=== PATIENT | female | born 1975 | race African-American/Black ===

== ENCOUNTER 2016-03-05 10:07 | Inpatient (IN) | payer MEDICARE, MEDICAID ==
--- NOTE | 2016-03-05 10:19 | ER Document Report ---
ED General - General Stated Complaint: ABDOMINAL PAIN Time seen by provider: 10:17 Mode of Arrival: Medic Information source: Patient, Emergency Med Personnel Notes: This is a 40-year-old female with a history of pancreatitis, sarcoidosis who is brought in by EMS with severe upper and right-sided abdominal pain. Patient states that the pain started gradually last night and has slowly and progressively worsened. Patient has a hysterectomy: Denies any vaginal discharge or vaginal bleeding. Patient denies any blood per stool. Patient denies fever. TRAVEL OUTSIDE OF THE [place] IN LAST 30 DAYS: No - HPI Onset: Yesterday Onset/Duration: Gradual Quality of pain: Dull Severity: Severe Pain Level: 5 Associated symptoms: Nausea, Vomiting. denies: Chills, Fever, Shortness of breath Exacerbated by: Denies Relieved by: Denies Similar symptoms previously: Yes Recently seen / treated by doctor: No - Related Data Allergies/Adverse Reactions: No Known Allergies Allergy (Unverified 10/10/15 23:01) Home Medications: Current Home Medications Amitriptyline HCl [Elavil 25 mg Tablet] 25 mg PO QHS PRN 03/05/16 [History] Cyclobenzaprine HCl [Flexeril 10 mg Tablet] 10 mg PO TIDP PRN 03/05/16 [History] Past Medical History - General Information source: Patient - Social History Smoking Status: Never Smoker Cigarette use (# per day): No Chew tobacco use (# tins/day): No Frequency of alcohol use: None Drug Abuse: None Lives with: Family Family History: Reviewed & Not Pertinent Patient has suicidal ideation: No Patient has homicidal ideation: No - Past Medical History Cardiac Medical History: Reports: None Pulmonary Medical History: Reports: Other - Sarcoidosis EENT Medical History: Reports: None Neurological Medical History: Reports: None Endocrine Medical History: Reports: None Renal/ Medical History: Reports: None Malignancy Medical History: Reports: None GI Medical History: Reports: Other - Pancreatitis Musculoskeltal Medical History: Reports None Skin Medical History: Reports None Psychiatric Medical History: Reports: None Traumatic Medical History: Reports: None Infectious Medical History: Reports: None Past Surgical History: Reports: Hx Hysterectomy - Immunizations Immunizations up to date: No Review of Systems - Review of Systems Constitutional: denies: Chills, Fever EENT: No symptoms reported Cardiovascular: No symptoms reported Respiratory: No symptoms reported Gastrointestinal: See HPI Genitourinary: No symptoms reported Female Genitourinary: No symptoms reported Musculoskeletal: No symptoms reported Skin: No symptoms reported Hematologic/Lymphatic: No symptoms reported Neurological/Psychological: No symptoms reported Physical Exam - Vital signs Vitals: Temp Pulse Resp BP Pulse Ox 97.8 F 127 H 28 H 137/83 H 98 03/05/16 10:25 03/05/16 10:25 03/05/16 10:25 03/05/16 10:25 03/05/16 10:25 Notes: Physical exam: GENERAL: 40-year-old female, alert and oriented 3, moderate distress HEAD: Atraumatic, normocephalic. EYES: Pupils equal round and reactive to light, extraocular movements intact, sclera anicteric, conjunctiva are normal. ENT: TMs normal, nares patent, oropharynx clear without exudates. Moist mucous membranes. NECK: Normal range of motion, supple without lymphadenopathy or JVD. LUNGS: Breath sounds clear to auscultation bilaterally and equal. No wheezes rales or rhonchi. HEART: Regular rate and rhythm without murmurs, rubs or gallops. ABDOMEN: Soft, diffusely tender nontender without rebound, normoactive bowel sounds. No masses appreciated. EXTREMITIES: Normal range of motion, no pitting or edema. No clubbing or cyanosis. NEUROLOGICAL: Cranial nerves II through XII grossly intact. Normal speech, normal gait. PSYCH: Normal mood, normal affect. SKIN: Warm, Dry, normal turgor, no rashes or lesions noted. Course - Re-evaluation Re-evalutation: 03/05/16 19:14 Patient treated with IV fluids, IV morphine, IV Dilaudid, IV Reglan, IV Benadryl , IV Zofran. Patient's lipase is markedly elevated consistent with pancreatitis. Ultrasound of the abdomen was then obtained which does not show any gallbladder disease. There is no obvious common bile duct dilatation, no obvious intrahepatic ductal dilatation. - Vital Signs Vital signs: Temp Pulse Resp BP Pulse Ox 97.3 F 91 19 117/78 100 03/05/16 17:35 03/05/16 17:35 03/05/16 17:35 03/05/16 17:35 03/05/16 17:35 - Laboratory Result Diagrams: 03/05/16 10:34 03/05/16 10:34 Laboratory results interpreted by me: 03/05/16 03/05/16 03/05/16 10:34 10:34 10:34 MCHC 31.4 L RDW 14.2 H Glucose 201 H Lactic Acid 2.3 H AST 107 H ALT 77 H Lipase 3690.9 H Urine Blood 03/05/16 12:30 MCHC RDW Glucose Lactic Acid AST ALT Lipase Urine Blood SMALL H - Diagnostic Test Radiology reviewed: Image reviewed, Reports reviewed - Acute pancreatitis on abdominal CT. Critical Care Note - Critical Care Note Total time excluding time spent on procedures (mins): 60 Discharge - Discharge Clinical Impression: acute pancreatitis Condition: Serious Disposition: ADMITTED INPATIENT Admitting Provider: Hospitalist - Dr. Guido Unit Admitted: Telemetry
[2016-03-05] MEDS ORDERED: ONDANSETRON HCL INJ/PF 4 MG/2 ML SDV IV ONE ×2 (10:20→13:12)
[2016-03-05] MEDS: MORPHINE SULFATE 10 MG/ML INJ IV PRN ×2 (10:41→10:54)
[2016-03-05] MEDS: NORMAL SALINE 1000 ML 1,000 ML IV PRN ×2 (10:42→14:39)
[2016-03-05 10:53] LABS: ABSOLUTE BASOPHILS # (AUTO) 0.1 10^3/uL (0.0-0.2); ABSOLUTE EOSINOPHILS # (AUTO) 0.1 10^3/uL (0.0-0.6); ABSOLUTE LYMPHOCYTES (AUTO) 3.7 10^3/uL (0.5-4.7); ABSOLUTE MONOCYTES (AUTO) 0.4 10^3/uL (0.1-1.4); ABSOLUTE NEUT (AUTO) 4.5 10^3/uL (1.7-8.2); BASOPHILS % (AUTO) 0.6 % (0-2); EOSINOPHILS % (AUTO) 0.8 % (0-6); HEMATOCRIT 44.5 % (36.0-47.0); HGB HCT DIFFERENCE -2.5; LYMPHOCYTES % (AUTO) 42.6 % (13-45); MEAN CORPUSCULAR HEMOGLOBIN 28.6 pg (27.0-33.4); MEAN CORPUSCULAR HGB CONC 31.4 g/dL (32.0-36.0); MEAN CORPUSCULAR VOLUME 91 fl (80-97); MONOCYTES % (AUTO) 4.3 % (3-13); RED CELL DISTRIBUTION WIDTH 14.2 % (11.5-14.0); SEGMENTED NEUTROPHILS % (AUTO) 51.7 % (42-78); WHITE BLOOD COUNT 8.8 10^3/uL (4.0-10.5)
[2016-03-05] MEDS ORDERED: HYDROMORPHONE HCL INJ/PF 2 MG/ML AMPULE IV ONE ×3 (11:00→14:31)
[2016-03-05 11:35] LABS: ALANINE AMINOTRANSFERASE 77 U/L (9-52); ALBUMIN 3.9 g/dL (3.5-5.0); ALKALINE PHOSPHATASE 107 U/L (38-126); ANION GAP 13 (5-19); ASPARTATE AMINO TRANSFERASE 107 U/L (14-36); BILIRUBIN,TOTAL 0.5 mg/dL (0.2-1.3); BLOOD UREA NITROGEN 11 mg/dL (7-20); CARBON DIOXIDE 22 mmol/L (22-30); CHLORIDE 104 mmol/L (98-107); CREATININE RESULT 0.72 mg/dL (0.52-1.25); GLUCOSE 201 mg/dL (75-110); POTASSIUM 4.2 mmol/L (3.6-5.0); SODIUM 139.3 mmol/L (137-145); TOTAL PROTEIN 8.1 g/dL (6.3-8.2)
[2016-03-05 11:48] LABS: LIPASE 3690.9 U/L (23-300)
[2016-03-05] MEDS ORDERED: ONDANSETRON HCL INJ/PF 4 MG/2 ML SDV ONE (12:43)
[2016-03-05 13:08] LABS: APPEARANCE,URINE TURBID; BILIRUBIN,URINE NEGATIVE (NEGATIVE); GLUCOSE, URINE NEGATIVE (NEGATIVE); KETONES,URINE NEGATIVE (NEGATIVE); LEUKOCYTE ESTERASE,URINE NEGATIVE (NEGATIVE); NITRITE,URINE NEGATIVE (NEGATIVE); PROTEIN,URINE NEGATIVE (NEGATIVE); URINE SPECIFIC GRAVITY 1.039; UROBILINOGEN,URINE NEGATIVE mg/dL (<2.0)
[2016-03-05] MEDS ORDERED: METOCLOPRAMIDE HCL INJ/PF 10 MG/2 ML SDV IV ONE (14:31)
[2016-03-05] MEDS ORDERED: DIPHENHYDRAMINE HCL 50 MG/ML VIAL IV ONE (14:31)
[2016-03-05] MEDS ORDERED: NORMAL SALINE 1000 ML 1,000 ML IV PRN (14:31)
[2016-03-05] MEDS ORDERED: ACETAMINOPHEN 325 MG TABLET PO PRN (15:22)
--- NOTE | 2016-03-05 15:51 | PDOC H&P ---
History of Present Illness Admission Date/PCP: 03/05/16 15:25 Patient complains of: abdominal pain History of Present Illness: RADHA ZAFAR is a 40 year old female who lives out of [facility] and [facility], with a known history of sarcoidosis receiving pulse dose steroids ( but none recently) and a prior history of idiopathic pancreatitis presents to the emergency department with a 1 day history of sudden onset sharp stabbing epigastric pain radiating into the right abdomen and around to her right flank with associated nausea vomiting and chills. She denies sick contacts. She denies alcohol. She had a similar episode but it's been many years ago. She was evaluated by [facility] at that time and no etiology of her pancreatitis was found. She carries a diagnosis of sarcoidosis but her serum calcium here is normal. She reports routinely receiving pulse dose steroids but none in the last 3-6 months. Evaluation in the emergency department shows markedly elevated lipase, leukocytosis and CT the abdomen and pelvis with stranding around the pancreatic head CONSISTENT with an acute pancreatitis. We were asked to admit her for further evaluation and management. 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 Parental Family History Reviewed: Yes Children Family History Reviewed: Yes Sibling(s) Family History Reviewed.: Yes Medication/Allergy Home Medications: Hydrocodone/Acetaminophen [[place] 5-325 mg Tablet] 1 tab PO Q4 PRN #12 tablet Penicillin V Potassium [Penicillin Vk 500 mg Tablet] 500 mg PO BID #20 tablet Azithromycin [Zithromax 250 mg Tablet] 250 mg PO ASDIR PRN #6 tablet 10/30/15 Guaifenesin [Mucinex] 1,200 mg PO Q12 #14 tbmp.12hr 10/30/15 Hydrocodone Bit/Homatropine [Hycodan Syrup 5-1.5 mg/5 ml Ud Cup] 5 ml PO Q4HP PRN #120 ml 10/30/15 Prednisone [Deltasone 20 mg Tablet] 3 tab PO DAILY 5 Days 10/30/15 Allergies/Adverse Reactions: No Known Allergies Allergy (Unverified 10/10/15 23:01) Review of Systems Constitutional: PRESENT: chills, headache(s). ABSENT: fever(s), weight gain, weight loss Eyes: ABSENT: visual disturbances Ears: ABSENT: hearing changes Cardiovascular: ABSENT: chest pain, dyspnea on exertion, edema, orthropnea, palpitations Respiratory: ABSENT: cough, hemoptysis Gastrointestinal: PRESENT: abdominal pain, constipation - Has chronic constipation and usually goes to 3 days between bowel movements, nausea, vomiting. ABSENT: diarrhea, hematemesis, hematochezia Genitourinary: ABSENT: dysuria, hematuria Musculoskeletal: ABSENT: joint swelling Integumentary: ABSENT: rash, wounds Neurological: ABSENT: abnormal gait, abnormal speech, confusion, dizziness, focal weakness, syncope Psychiatric: ABSENT: anxiety, depression Endocrine: ABSENT: cold intolerance, heat intolerance, polydipsia, polyuria Hematologic/Lymphatic: ABSENT: easy bleeding, easy bruising Physical Exam Vital Signs: Temp Pulse Resp BP Pulse Ox 26 H 118/53 L 94 03/05/16 15:00 03/05/16 12:02 03/05/16 15:00 General appearance: PRESENT: mild distress, obese, well-developed Head exam: PRESENT: atraumatic, normocephalic Eye exam: PRESENT: conjunctiva pink, EOMI, PERRLA. ABSENT: nystagmus, scleral icterus Mouth exam: PRESENT: moist, tongue midline Neck exam: ABSENT: carotid bruit, JVD, lymphadenopathy, thyromegaly Respiratory exam: PRESENT: clear to auscultation ryan. ABSENT: rales, rhonchi, wheezes Cardiovascular exam: PRESENT: RRR, tachycardia. ABSENT: diastolic murmur, rubs , systolic murmur Pulses: PRESENT: normal dorsalis pedis pul Vascular exam: PRESENT: normal capillary refill GI/Abdominal exam: PRESENT: diminished bowel sounds, distended, guarding - Voluntary, soft, tenderness - Marked tenderness over the epigastrium. ABSENT: rebound Rectal exam: PRESENT: deferred Extremities exam: PRESENT: full ROM. ABSENT: calf tenderness, clubbing, pedal edema Musculoskeletal exam: PRESENT: ambulatory Neurological exam: PRESENT: alert, awake, oriented to person, oriented to place , oriented to time, oriented to situation Psychiatric exam: PRESENT: appropriate affect, normal mood Skin exam: PRESENT: intact, warm. ABSENT: cyanosis, dry - Moist, rash Results Impressions: Abdomen/Pelvis CT 03/05/16 11:47 IMPRESSION: Acute pancreatitis. Correlation with serum chemistries is recommended. Abdomen Ultrasound 03/05/16 11:53 IMPRESSION: No acute abnormality. Assessment & Plan - Diagnosis (1) Acute pancreatitis without infection or necrosis Qualifiers: Pancreatitis type: idiopathic Qualified Code(s): K85.00 - Idiopathic acute pancreatitis without necrosis or infection Is this a current diagnosis for this admission?: YesPlan: Possibly viral. Ultrasound of the abdomen showed no evidence for gallstones or biliary tract disease. CT scan of the abdomen and pelvis failed to reveal alternate etiology, confirming inflammation of the head of the pancreas consistent with acute pancreatitis but without pseudocyst formation or necrosis evident. Admit for aggressive IV fluid hydration, antiemetics, analgesics, and bowel rest. Check a nonfasting lipid to evaluate for hypertriglyceridemia. Trend her lipase and C-reactive protein. Trend her CBC. Check an ionized calcium even though her serum calcium was normal given her history of sarcoidosis and its propensity for hypercalcemia. Monitor magnesium and phosphorus, and replace if low (2) Abnormal LFTs (liver function tests) Is this a current diagnosis for this admission?: YesPlan: Unclear etiology. Possibly fatty infiltrate given her obesity. Possibly related to the acute pancreatitis, it's unclear at this time. Trend LFTs. Screen for hepatitis A, B, and C. Screen for EBV. - Time Time Spent: 50 to 70 Minutes Medications reviewed and adjusted accordingly: Yes Anticipated discharge: Home Within: within 72 hours
[2016-03-05] MEDS ORDERED: BISACODYL 10 MG SUPP.RECT PR ONE (16:45)
[2016-03-05 17:20] LABS: C-REACTIVE PROTEIN 11.6 mg/L (<10.0); PHOSPHORUS 3.8 mg/dL (2.5-4.5)
[2016-03-05] MEDS: DOCUSATE SODIUM 100 MG CAPSULE PO SCH (18:05)
[2016-03-05] MEDS: PROMETHAZINE HCL INJ 25 MG/1 ML VIAL IV PRN (18:29)
[2016-03-05] MEDS: RINGERS SOLUTION,LACTATED 1,000 ML IV PRN (18:30)
[2016-03-05] MEDS: HYDROMORPHONE HCL INJ/PF 2 MG/ML AMPULE IV PRN ×3 (18:30→22:46)
[2016-03-05 18:54] LABS: URINE BARBITURATES SCREEN NEGATIVE; URINE METHADONE SCREEN NEGATIVE; URINE PHENCYCLIDINE SCREEN NEGATIVE
[2016-03-05] MEDS: KETOROLAC TROMETHAMINE INJ/PF 30 MG/1 ML SDV IV PRN (20:36)
[2016-03-05] MEDS: PANTOPRAZOLE SODIUM 40 MG VIAL IV SCH (22:15)
[2016-03-06] MEDS: HYDROMORPHONE HCL INJ/PF 2 MG/ML AMPULE IV PRN ×8 (01:17→21:03)
[2016-03-06] MEDS: RINGERS SOLUTION,LACTATED 1,000 ML IV PRN ×4 (01:20→20:06)
[2016-03-06] MEDS: PROMETHAZINE HCL INJ 25 MG/1 ML VIAL IV PRN ×4 (03:06→21:19)
[2016-03-06] MEDS: KETOROLAC TROMETHAMINE INJ/PF 30 MG/1 ML SDV IV PRN ×3 (05:33→21:02)
[2016-03-06] MEDS: ENOXAPARIN SODIUM INJ 40 MG/0.4 ML DISP.SYRIN SUBCUT SCH (07:41)
[2016-03-06 08:35] LABS: ABSOLUTE BASOPHILS # (AUTO) 0.1 10^3/uL (0.0-0.2); ABSOLUTE NEUT (AUTO) 14.1 10^3/uL (1.7-8.2); BASOPHILS % (AUTO) 0.3 % (0-2); EOSINOPHILS % (AUTO) 0.2 % (0-6); HEMATOCRIT 39.9 % (36.0-47.0); HEMOGLOBIN 13.1 g/dL (12.0-15.5); HGB HCT DIFFERENCE -0.6; LYMPHOCYTES % (AUTO) 6.4 % (13-45); MEAN CORPUSCULAR HEMOGLOBIN 29.7 pg (27.0-33.4); MEAN CORPUSCULAR HGB CONC 32.9 g/dL (32.0-36.0); MEAN CORPUSCULAR VOLUME 90 fl (80-97); RED BLOOD COUNT 4.42 10^6/uL (3.72-5.28); RED CELL DISTRIBUTION WIDTH 14.2 % (11.5-14.0); SEGMENTED NEUTROPHILS % (AUTO) 87.1 % (42-78); WHITE BLOOD COUNT 16.2 10^3/uL (4.0-10.5)
[2016-03-06 09:00] LABS: ALANINE AMINOTRANSFERASE 154 U/L (9-52); ALBUMIN 2.9 g/dL (3.5-5.0); ALKALINE PHOSPHATASE 97 U/L (38-126); ANION GAP 10 (5-19); ASPARTATE AMINO TRANSFERASE 96 U/L (14-36); BILIRUBIN,TOTAL 0.4 mg/dL (0.2-1.3); BLOOD UREA NITROGEN 8 mg/dL (7-20); C-REACTIVE PROTEIN 76.8 mg/L (<10.0); CALCIUM 8.3 mg/dL (8.4-10.2); CARBON DIOXIDE 28 mmol/L (22-30); CHLORIDE 103 mmol/L (98-107); CHOLESTEROL 176.55 mg/dL (0-200); CREATININE RESULT 0.62 mg/dL (0.52-1.25); Direct HDL 50 mg/dL (>40); GLUCOSE 101 mg/dL (75-110); LIPASE 1312.8 U/L (23-300); MAGNESIUM 1.8 mg/dL (1.6-2.3); PHOSPHORUS 3.7 mg/dL (2.5-4.5); POTASSIUM 3.7 mmol/L (3.6-5.0); TRIGLYCERIDES 67 mg/dL (<150)
[2016-03-06 09:09] LABS: DIRECT LDL 110 mg/dL (<100)
[2016-03-06] MEDS ORDERED: POLYETHYLENE GLYCOL 3350 POWDER 17 GM/1 PACKET PO PRN (10:05)
[2016-03-06] MEDS: DOCUSATE SODIUM 100 MG CAPSULE PO SCH ×2 (11:10→17:50)
[2016-03-06] MEDS: PANTOPRAZOLE SODIUM 40 MG VIAL IV SCH ×2 (11:11→21:07)
--- NOTE | 2016-03-06 11:22 | PDOC PROGRESS REPORT ---
Subjective Progress Note for:: 03/06/16 Subjective:: RADHA ZAFAR is a 40 year old female who lives out of [facility] and [facility], with a known history of sarcoidosis receiving pulse dose steroids ( but none recently) and a prior history of idiopathic pancreatitis presents to the emergency department with a 1 day history of sudden onset sharp stabbing epigastric pain radiating into the right abdomen and around to her right flank with associated nausea vomiting and chills. She denies sick contacts. She denies alcohol. She had a similar episode but it's been many years ago. She was evaluated by [facility] at that time and no etiology of her pancreatitis was found. She carries a diagnosis of sarcoidosis but her serum calcium here is normal. She reports routinely receiving pulse dose steroids but none in the last 3-6 months. Evaluation in the emergency department shows markedly elevated lipase, leukocytosis and CT the abdomen and pelvis with stranding around the pancreatic head CONSISTENT with an acute pancreatitis. We were asked to admit her for further evaluation and management. Minimal improvement by morning. She states her pain is still persistent, ironically she wants to try to eat something while at the same time telling me she still nauseous but no vomiting since last night. She claims a bowel movement this morning of liquid brown stool but isn't passing flatus. Abdomen is still distended extremely tender in the epigastrium. States this is the worst episode she's had of pancreatitis. Nursing reports patient is requesting Dilaudid every 2 hours. Physical Exam Vital Signs: Temp Pulse Resp BP Pulse Ox 97.7 F 108 H 18 121/63 91 L 03/06/16 06:53 03/06/16 06:53 03/06/16 06:53 03/06/16 06:53 03/06/16 06:53 Intake & Output 03/05/16 03/06/16 03/07/16 06:59 06:59 06:59 Intake Total 4337 Output Total 500 Balance 3837 Weight 115.6 kg General appearance: PRESENT: no acute distress, cooperative, obese Head exam: PRESENT: atraumatic, normocephalic Eye exam: PRESENT: conjunctiva pink, EOMI, PERRLA. ABSENT: scleral icterus Mouth exam: PRESENT: moist, neck supple Neck exam: ABSENT: carotid bruit, JVD, lymphadenopathy, thyromegaly Respiratory exam: PRESENT: clear to auscultation ryan. ABSENT: rales, rhonchi, wheezes Cardiovascular exam: PRESENT: RRR. ABSENT: diastolic murmur, rubs, systolic murmur Pulses: PRESENT: normal carotid pulses, normal radial pulses GI/Abdominal exam: PRESENT: distended, guarding, hypoactive bowel sounds, soft, tenderness - Localizing to the epigastrium Extremities exam: PRESENT: full ROM. ABSENT: calf tenderness, clubbing, pedal edema Musculoskeletal exam: PRESENT: ambulatory, full ROM Neurological exam: PRESENT: alert, awake, oriented to person, oriented to place , oriented to time, oriented to situation Psychiatric exam: PRESENT: appropriate affect, normal mood Skin exam: PRESENT: intact, warm - Moist. ABSENT: cyanosis, rash Results Laboratory Results: 03/06/16 08:00 03/06/16 08:00 03/05/16 03/05/16 03/05/16 16:40 16:40 17:50 WBC RBC Hgb Hct MCV MCH MCHC RDW Plt Count Seg Neutrophils % Lymphocytes % Monocytes % Eosinophils % Basophils % Absolute Neutrophils Absolute Lymphocytes Absolute Monocytes Absolute Eosinophils Absolute Basophils Sodium Potassium Chloride Carbon Dioxide Anion Gap BUN Creatinine Est GFR ( Amer) Est GFR (Non-Af Amer) Glucose Calcium Ionized Calcium [place] 1.11 L Phosphorus 3.8 Magnesium 2.0 Total Bilirubin AST ALT Alkaline Phosphatase C-Reactive Protein 11.6 H Total Protein Albumin Triglycerides Cholesterol LDL Cholesterol Direct VLDL Cholesterol HDL Cholesterol Lipase TSH 2.83 03/06/16 03/06/16 03/06/16 00:29 08:00 08:00 WBC 16.2 H RBC 4.42 Hgb 13.1 Hct 39.9 MCV 90 MCH 29.7 MCHC 32.9 RDW 14.2 H Plt Count 250 Seg Neutrophils % 87.1 H Lymphocytes % 6.4 L Monocytes % 6.0 Eosinophils % 0.2 Basophils % 0.3 Absolute Neutrophils 14.1 H Absolute Lymphocytes 1.0 Absolute Monocytes 1.0 Absolute Eosinophils 0.0 Absolute Basophils 0.1 Sodium 141.0 Potassium 3.7 Chloride 103 Carbon Dioxide 28 Anion Gap 10 BUN 8 Creatinine 0.62 Est GFR ( Amer) > 60 Est GFR (Non-Af Amer) > 60 Glucose 101 Calcium 8.3 L Ionized Calcium [place] 1.12 L Phosphorus 3.7 Magnesium 1.8 Total Bilirubin 0.4 AST 96 H ALT 154 H Alkaline Phosphatase 97 C-Reactive Protein 76.8 H Total Protein 6.0 L Albumin 2.9 L Triglycerides 67 Cholesterol 176.55 LDL Cholesterol Direct 110 H VLDL Cholesterol 13.0 HDL Cholesterol 50 Lipase 1312.8 H TSH 03/06/16 08:18 WBC RBC Hgb Hct MCV MCH MCHC RDW Plt Count Seg Neutrophils % Lymphocytes % Monocytes % Eosinophils % Basophils % Absolute Neutrophils Absolute Lymphocytes Absolute Monocytes Absolute Eosinophils Absolute Basophils Sodium Potassium Chloride Carbon Dioxide Anion Gap BUN Creatinine Est GFR ( Amer) Est GFR (Non-Af Amer) Glucose Calcium Ionized Calcium [place] 1.10 L Phosphorus Magnesium Total Bilirubin AST ALT Alkaline Phosphatase C-Reactive Protein Total Protein Albumin Triglycerides Cholesterol LDL Cholesterol Direct VLDL Cholesterol HDL Cholesterol Lipase TSH Impressions: Abdomen/Pelvis CT 03/05/16 11:47 IMPRESSION: Acute pancreatitis. Correlation with serum chemistries is recommended. Abdomen Ultrasound 03/05/16 11:53 IMPRESSION: No acute abnormality. Assessment & Plan - Diagnosis (1) Acute pancreatitis without infection or necrosis Qualifiers: Pancreatitis type: idiopathic Qualified Code(s): K85.00 - Idiopathic acute pancreatitis without necrosis or infection Is this a current diagnosis for this admission?: YesPlan: No real improvement. Possibly viral, hepatitis panel and EBV panel still pending. Ultrasound of the abdomen showed no evidence for gallstones or biliary tract disease. CT scan of the abdomen and pelvis failed to reveal alternate etiology, confirming inflammation of the head of the pancreas consistent with acute pancreatitis but without pseudocyst formation or necrosis evident. Continue aggressive IV fluid hydration, antiemetics, analgesics, and bowel rest. nonfasting lipid to evaluate for hypertriglyceridemia reassuring. Trend her lipase and C-reactive protein. Trend her CBC. Monitor magnesium and phosphorus, and replace if low (2) Abnormal LFTs (liver function tests) Is this a current diagnosis for this admission?: YesPlan: Trending down. Unclear etiology. Possibly fatty infiltrate given her obesity. Possibly related to the acute pancreatitis, it's unclear at this time. Trend LFTs. Screen for hepatitis A, B, and C. And Screen for EBV pending. (3) Sepsis Qualifiers: Sepsis type: sepsis due to unspecified organism Qualified Code(s): A41.9 - Sepsis, unspecified organism Is this a current diagnosis for this admission?: YesPlan: Developed within hours of admission, evidenced by leukocytosis and tachycardia tachypnea and the source being pancreatitis. Treatment outlined above. (4) Adynamic ileus Is this a current diagnosis for this admission?: YesPlan: Developing, likely due to pancreatitis possibly contribution from frequent narcotic use. Continue nothing by mouth status and monitor. May need abdominal x-ray if condition worsens. Will add bowel regimen. - Time Time Spent with patient: 35 or more minutes
[2016-03-06] MEDS ORDERED: BISACODYL 10 MG SUPP.RECT PR ONE (17:34)
[2016-03-06] MEDS: AMITRIPTYLINE HCL 25 MG TABLET PO PRN (21:01)
[2016-03-07] MEDS: HYDROMORPHONE HCL INJ/PF 2 MG/ML AMPULE IV PRN ×7 (01:08→21:15)
[2016-03-07] MEDS: RINGERS SOLUTION,LACTATED 1,000 ML IV PRN ×2 (03:00→09:47)
[2016-03-07] MEDS: KETOROLAC TROMETHAMINE INJ/PF 30 MG/1 ML SDV IV PRN ×4 (03:01→23:28)
[2016-03-07 04:01] LABS: HEMATOCRIT 38.1 % (36.0-47.0); HEMOGLOBIN 12.3 g/dL (12.0-15.5); HGB HCT DIFFERENCE -1.2; MEAN CORPUSCULAR HEMOGLOBIN 29.1 pg (27.0-33.4); MEAN CORPUSCULAR HGB CONC 32.2 g/dL (32.0-36.0); MEAN CORPUSCULAR VOLUME 90 fl (80-97); RED BLOOD COUNT 4.21 10^6/uL (3.72-5.28); RED CELL DISTRIBUTION WIDTH 13.8 % (11.5-14.0); WHITE BLOOD COUNT 20.9 10^3/uL (4.0-10.5)
[2016-03-07 04:19] LABS: LIPASE 620.7 U/L (23-300); MAGNESIUM 1.5 mg/dL (1.6-2.3); PHOSPHORUS 3.1 mg/dL (2.5-4.5)
[2016-03-07] MEDS: PROMETHAZINE HCL INJ 25 MG/1 ML VIAL IV PRN ×4 (04:19→21:06)
[2016-03-07 04:41] LABS: BAND NEUTROPHILS % (MANUAL) 3 % (3-5); BASOPHILS % (MANUAL) 0 % (0-2); EOSINOPHILS % (MANUAL) 0 % (0-6); LYMPHOCYTES % (MANUAL) 8 % (13-45); PLATELET CLUMPS PRESENT; RBC MORPHOLOGY COMMENT NORMO-CYTIC/CHROMIC; TOTAL CELLS COUNTED 100; TOXIC VACUOLATION PRESENT
[2016-03-07 04:58] LABS: C-REACTIVE PROTEIN 315.3 mg/L (<10.0)
[2016-03-07 08:33] LABS: ALANINE AMINOTRANSFERASE 93 U/L (9-52); ALBUMIN 2.5 g/dL (3.5-5.0); ALKALINE PHOSPHATASE 90 U/L (38-126); ANION GAP 9 (5-19); ASPARTATE AMINO TRANSFERASE 43 U/L (14-36); BILIRUBIN,TOTAL 0.7 mg/dL (0.2-1.3); BLOOD UREA NITROGEN 9 mg/dL (7-20); CARBON DIOXIDE 25 mmol/L (22-30); CHLORIDE 101 mmol/L (98-107); CREATININE RESULT 0.61 mg/dL (0.52-1.25); GLUCOSE 97 mg/dL (75-110); POTASSIUM 3.5 mmol/L (3.6-5.0); SODIUM 135.4 mmol/L (137-145); TOTAL PROTEIN 5.5 g/dL (6.3-8.2)
[2016-03-07] MEDS: ENOXAPARIN SODIUM INJ 40 MG/0.4 ML DISP.SYRIN SUBCUT SCH (09:43)
[2016-03-07] MEDS: DOCUSATE SODIUM 100 MG CAPSULE PO SCH ×2 (09:44→17:02)
[2016-03-07] MEDS: PANTOPRAZOLE SODIUM 40 MG VIAL IV SCH ×2 (10:00→21:05)
--- NOTE | 2016-03-07 10:54 | PDOC PROGRESS REPORT ---
Subjective Progress Note for:: 03/07/16 Subjective:: RADHA ZAFAR is a 40 year old female who lives out of [facility] and [facility], with a known history of sarcoidosis receiving pulse dose steroids ( but none recently) and a prior history of idiopathic pancreatitis presents to the emergency department with a 1 day history of sudden onset sharp stabbing epigastric pain radiating into the right abdomen and around to her right flank with associated nausea vomiting and chills. She denies sick contacts. She denies alcohol. She had a similar episode but it's been many years ago. She was evaluated by soup mixer at that time and no etiology of her pancreatitis was found. She carries a diagnosis of sarcoidosis but her serum calcium here is normal. She reports routinely receiving pulse dose steroids but none in the last 3-6 months. Evaluation in the emergency department shows markedly elevated lipase, leukocytosis and CT the abdomen and pelvis with stranding around the pancreatic head CONSISTENT with an acute pancreatitis. We were asked to admit her for further evaluation and management. Minimal improvement by next morning. pain persistent, ironically she still wants to try to eat something while at the same time telling me she still nauseous but no vomiting since last night. She claims a bowel movement of soft brown stool after suppository and is passing flatus. Abdomen is still distended , extremely tender in the epigastrium. States this is the worst episode she's had of pancreatitis. Nursing reports patient is requesting more Dilaudid than every 3 hours as ordered. Physical Exam Vital Signs: Temp Pulse Resp BP Pulse Ox 98.8 F 134 H 18 128/65 H 92 03/07/16 07:12 03/07/16 07:12 03/07/16 07:12 03/07/16 07:12 03/07/16 07:12 Intake & Output 03/06/16 03/07/16 03/08/16 06:59 06:59 06:59 Intake Total 4337 5170 Output Total 500 1500 Balance 3837 3670 Weight 115.6 kg 115.6 kg General appearance: PRESENT: mild distress, obese, well-developed Head exam: PRESENT: atraumatic, normocephalic Eye exam: PRESENT: conjunctiva pink, EOMI, PERRLA. ABSENT: scleral icterus Mouth exam: PRESENT: moist, tongue midline Neck exam: ABSENT: carotid bruit, JVD, lymphadenopathy, thyromegaly Respiratory exam: PRESENT: clear to auscultation ryan. ABSENT: rales, rhonchi, wheezes Cardiovascular exam: PRESENT: RRR. ABSENT: diastolic murmur, rubs, systolic murmur Pulses: PRESENT: normal dorsalis pedis pul Vascular exam: PRESENT: normal capillary refill GI/Abdominal exam: PRESENT: distended, hypoactive bowel sounds, soft, tenderness - Diffuse, localizing to the epigastrium. ABSENT: guarding, rebound Rectal exam: PRESENT: deferred Extremities exam: PRESENT: full ROM. ABSENT: calf tenderness, clubbing, pedal edema Neurological exam: PRESENT: alert, awake, oriented to person, oriented to place , oriented to time, oriented to situation Psychiatric exam: PRESENT: appropriate affect, normal mood Skin exam: PRESENT: dry, intact, warm. ABSENT: cyanosis, rash Results Laboratory Results: 03/07/16 03:51 03/07/16 07:56 03/07/16 03/07/16 03/07/16 03:51 03:51 07:56 WBC 20.9 H RBC 4.21 Hgb 12.3 Hct 38.1 MCV 90 MCH 29.1 MCHC 32.2 RDW 13.8 Plt Count 209 Seg Neutrophils % Not Reportable Lymphocytes % Not Reportable Monocytes % Not Reportable Eosinophils % Not Reportable Basophils % Not Reportable Absolute Neutrophils Not Reportable Absolute Lymphocytes Not Reportable Absolute Monocytes Not Reportable Absolute Eosinophils Not Reportable Absolute Basophils Not Reportable Sodium 135.4 L Potassium 3.5 L Chloride 101 Carbon Dioxide 25 Anion Gap 9 BUN 9 Creatinine 0.61 Est GFR ( Amer) > 60 Est GFR (Non-Af Amer) > 60 Glucose 97 Calcium 8.0 L Phosphorus 3.1 Magnesium 1.5 L Total Bilirubin 0.7 AST 43 H ALT 93 H Alkaline Phosphatase 90 C-Reactive Protein 315.3 H Total Protein 5.5 L Albumin 2.5 L Lipase 620.7 H Impressions: Abdomen/Pelvis CT 03/05/16 11:47 IMPRESSION: Acute pancreatitis. Correlation with serum chemistries is recommended. Abdomen Ultrasound 03/05/16 11:53 IMPRESSION: No acute abnormality. Assessment & Plan - Diagnosis (1) Acute pancreatitis without infection or necrosis Qualifiers: Pancreatitis type: idiopathic Qualified Code(s): K85.00 - Idiopathic acute pancreatitis without necrosis or infection Is this a current diagnosis for this admission?: YesPlan: Minimal improvement, C-reactive protein is markedly elevated now greater than 300 and rising rapidly, lipase however has turned corner and half what it was yesterday. Etiology Possibly viral, hepatitis panel and EBV panel still pending. Ultrasound of the abdomen showed no evidence for gallstones or biliary tract disease. CT scan of the abdomen and pelvis failed to reveal alternate etiology , confirming inflammation of the head of the pancreas consistent with acute pancreatitis but without pseudocyst formation or necrosis evident. Continue aggressive IV fluid hydration, antiemetics, analgesics, and bowel rest. nonfasting lipid to evaluate for hypertriglyceridemia reassuring. Trend her lipase and C-reactive protein. Trend her CBC. Monitor magnesium and phosphorus, and replace if low (2) Abnormal LFTs (liver function tests) Is this a current diagnosis for this admission?: YesPlan: Trending down. Unclear etiology. Possibly fatty infiltrate given her obesity. Possibly related to the acute pancreatitis, it's unclear at this time. Trend LFTs. Screen for hepatitis A, B, and C. And Screen for EBV pending. (3) Sepsis Qualifiers: Sepsis type: sepsis due to unspecified organism Qualified Code(s): A41.9 - Sepsis, unspecified organism Is this a current diagnosis for this admission?: YesPlan: Unchanged, perhaps slightly worse with rising leukocytosis. However clinically she is at least minimally improved. Developed within hours of admission, evidenced by leukocytosis and tachycardia tachypnea and the source being pancreatitis. Treatment outlined above. (4) Adynamic ileus Is this a current diagnosis for this admission?: YesPlan: Developing, likely due to pancreatitis possibly contribution from frequent narcotic use. Continue nothing by mouth status and monitor. May need abdominal x-ray if condition worsens. Continue cathartic bowel regimen. - Time Time Spent with patient: 35 or more minutes
[2016-03-07] MEDS ORDERED: BISACODYL 10 MG SUPP.RECT PR PRN (11:25)
[2016-03-07] MEDS: MAGNESIUM SULFATE/D5W 1 GM/100 ML RTUPB IV SCH ×2 (12:34→15:00)
[2016-03-07 16:09] LABS: APPEARANCE,URINE SLIGHTLY-CLOUDY; BILIRUBIN,URINE NEGATIVE (NEGATIVE); GLUCOSE, URINE NEGATIVE (NEGATIVE); KETONES,URINE 80 mg/dL (NEGATIVE); LEUKOCYTE ESTERASE,URINE NEGATIVE (NEGATIVE); NITRITE,URINE NEGATIVE (NEGATIVE); PROTEIN,URINE 30 mg/dL (NEGATIVE); URINE SPECIFIC GRAVITY 1.018
[2016-03-07] MEDS: NORMAL SALINE 1000 ML 1,000 ML IV PRN ×2 (17:01→18:17)
[2016-03-07] MEDS ORDERED: IMIPENEM/CILASTATIN SODIUM INJ 500 MG VIAL IV PRN (18:47)
[2016-03-07] MEDS ORDERED: IMIPENEM/CILASTATIN SODIUM INJ 500 MG VIAL IV ONE ×2 (20:50→21:32)
[2016-03-07] MEDS: IMIPENEM/CILASTATIN SODIUM 1,000 MG in NORMAL SALINE 250 ML IV SCH (20:57)
[2016-03-07] MEDS: AMITRIPTYLINE HCL 25 MG TABLET PO PRN (21:15)
[2016-03-07] MEDS ORDERED: NORMAL SALINE 1000 ML 2,000 ML IV ONE (21:22)
[2016-03-07] MEDS ORDERED: DEXTROSE 5%-NORMAL SALINE 1,000 ML IV PRN (21:22)
[2016-03-07] MEDS ORDERED: HYDROMORPHONE HCL INJ/PF 2 MG/ML AMPULE IV PRN ×2 (21:26→23:29)
--- NOTE | 2016-03-07 22:09 | CONSULTATION REPORT E ---
Consultation Report NAME: RADHA ZAFAR : 1975 AGE: 40Y DATE: 03/07/2016 302 A TO: MYRANDA DE LUNA M.D. FROM: Requesting Physician REASON FOR CONSULTATION: Deteriorating pancreatitis. HISTORY OF PRESENT ILLNESS: This 40-year-old female from [place] who lives out of town presented to our hospital with idiopathic pancreatitis. The patient has one episode with a prior history of idiopathic pancreatitis many years ago. The patient was evaluated by the research & insights executive at that time and no etiology for her pancreatitis was found. The patient had no history of gallstone pancreatitis, no history of alcohol abuse or drug abuse. The patient does have a history of sarcoidosis but her serum calcium has been normal. The patient presented with a one-day history of sharp, stabbing epigastric pain radiating to the right abdomen, around to her flank and was associated with nausea and vomiting. The patient denies any history of any abdominal trauma and there has been no explanation for her idiopathic pancreatitis. The patient was admitted to the hospital on 03/06 where she was noted to have a tender abdomen which was distended with hypoactive bowel sounds with epigastric tenderness. The patient underwent CT scan of the abdomen at that time which revealed pancreatic inflammation about the head of the pancreas, but there was no evidence of pseudocyst, abscess or anything to suggest necrotizing pancreatitis. The patient's gallbladder was distended but there was no pericholecystic fluid and there was no thickening of the gallbladder, nothing to suggest gallstone pancreatitis. The patient was admitted to the hospital and started on IV fluids. Her lipase was found to be in the range of 1300 o on admission with a white count of 8.8, but now her white count has gone from 8.8 on 03/05 to 15.2 on 03/06 to 20.9 today. Her hemoglobin and hematocrit have remained stable at 12.3 and 38.1. The patient's electrolytes appear within normal limits. Her C-reactive protein was *------* and her lipase on admission was 1312.8 and has come down to 620. However, today the patient has been noted to have deterioration of vital signs with heart rate going up to 139, respiratory rate going up to 30. For this reason, surgical consultation was requested. PAST MEDICAL HISTORY: The patient has a history of sarcoidosis as noted and has received steroids but has not had any in the last 3-6 months. PHYSICAL EXAMINATION: GENERAL: Reveals a 40-year-old female who is obese, normally developed, who is in mild to moderate distress. VITAL SIGNS: As noted above, heart rate 130, respirations 30, temperature normal. HEENT: There is no conjunctival pallor or scleral icterus. Mucous membranes are moist and pink. NECK: Supple without nodes, masses, thyroid, JVD or bruits. Trachea is midline. CHEST: Chest wall shows good excursions. LUNGS: Clear anteriorly with good entry. CARDIOVASCULAR: Patient is tachycardic. ABDOMEN: Obese, soft with marked epigastric, right upper quadrant and left upper quadrant tenderness which is 3+/4+ throughout the abdomen. There is no organomegaly, masses and/or hernias or bruits. No organomegaly. EXTREMITIES: Full range of motion. RADIOGRAPHIC DATA: The patient had an abdominal MRI which again showed evidence of pancreatitis involving the head of the pancreas, but there was no evidence of fluid draining down the right pericolic gutter. There is no evidence of pancreatic abscess or pseudocyst at this time, and the MRI seemed to suggest that the pancreatitis is confined to the head of the pancreas. ASSESSMENT: Severe pancreatitis that does not correlate to the hematologic picture or radiologic picture. RECOMMENDATION: I recommend that the patient be transferred to tertiary care center for supportive therapy. The patient may need exploratory laparotomy for insertion of percutaneous drains around the pancreas but in light of the significant change in her vital signs, I believe transfer is appropriate. DICTATING PHYSICIAN: MYRANDA DE LUNA M.D. [id number] PHY#: [id number] ID: [id number] JOB#: [id number] ACCT: [id number] cc:MYRANDA DE LUNA M.D. >
[2016-03-07 22:30] LABS: HEMATOCRIT 34.4 % (36.0-47.0); HEMOGLOBIN 11.3 g/dL (12.0-15.5); HGB HCT DIFFERENCE -0.5; MEAN CORPUSCULAR HEMOGLOBIN 29.6 pg (27.0-33.4); MEAN CORPUSCULAR HGB CONC 32.7 g/dL (32.0-36.0); MEAN CORPUSCULAR VOLUME 90 fl (80-97); RED BLOOD COUNT 3.81 10^6/uL (3.72-5.28); RED CELL DISTRIBUTION WIDTH 13.9 % (11.5-14.0); WHITE BLOOD COUNT 22.4 10^3/uL (4.0-10.5)
[2016-03-07 22:32] LABS: VENOUS BLOOD HCO3 21.3 mmol/L (20-32); VENOUS BLOOD PCO2 35.3 mmHg (35-63); VENOUS BLOOD PH 7.4 (7.30-7.42)
[2016-03-07 22:47] LABS: ANION GAP 11 (5-19); BLOOD UREA NITROGEN 6 mg/dL (7-20); CALCIUM 7.8 mg/dL (8.4-10.2); CARBON DIOXIDE 21 mmol/L (22-30); CHLORIDE 103 mmol/L (98-107); CREATININE RESULT 0.53 mg/dL (0.52-1.25); GLUCOSE 121 mg/dL (75-110); MAGNESIUM 2.2 mg/dL (1.6-2.3); POTASSIUM 3.5 mmol/L (3.6-5.0); SODIUM 135.2 mmol/L (137-145)
[2016-03-07 23:07] LABS: BASOPHILS % (MANUAL) 0 % (0-2); BURR CELLS 1+; EOSINOPHILS % (MANUAL) 0 % (0-6); LYMPHOCYTES % (MANUAL) 2 % (13-45); TOTAL CELLS COUNTED 100; TOXIC GRANULATION SLIGHT; TOXIC VACUOLATION PRESENT
[2016-03-07 23:08] LABS: BAND NEUTROPHILS % (MANUAL) 18 % (3-5); POLYCHROMASIA SLIGHT
[2016-03-07 23:18] LABS: PARTIAL THROMBOPLASTIN TIME 49.7 SEC (23.5-35.8)
[2016-03-07] MEDS ORDERED: POTASSI CL 20 MEQ/D5NS 1L 1,000 ML IV PRN (23:28)
[2016-03-07] MEDS ORDERED: RINGERS SOLUTION,LACTATED 2,000 ML IV ONE (23:28)
[2016-03-08 00:11] VITALS: BP 125/59
[2016-03-08 00:32] LABS: ARTERIAL BLOOD BASE EXCESS -1.9 mmol/L; ARTERIAL BLOOD O2 SATURATION 88.4 % (94-98)
[2016-03-08] MEDS: IMIPENEM/CILASTATIN SODIUM 1,000 MG in NORMAL SALINE 250 ML IV SCH (01:22)
--- NOTE | 2016-03-08 01:38 | PDOC TRANSFER SUMMARY ---
General Admission Date/PCP: 03/05/16 15:22 Resuscitation Status: Full Code - Transfer Medications Home Medications: Amitriptyline HCl [Elavil 25 mg Tablet] 25 mg PO QHS PRN 03/05/16 Cyclobenzaprine HCl [Flexeril 10 mg Tablet] 10 mg PO TIDP PRN 03/05/16 Transfer Medications: Current Medications Acetaminophen (Tylenol 325 Mg Tablet) 650 mg PO Q4HP PRN PRN Reason: FEVER >101 Stop: 04/04/16 15:21 Amitriptyline HCl (Elavil 25 Mg Tablet) 25 mg PO HSP PRN PRN Reason: SLEEP OR INSOMNIA Stop: 04/05/16 14:24 Last Admin: 03/07/16 21:15 Dose: 25 mg Bisacodyl (Dulcolax 10 Mg Supp.Rect) 10 mg [place] DAILYP PRN Stop: 04/06/16 11:24 Last Admin: 03/07/16 17:03 Dose: 10 mg Docusate Sodium (Colace 100 Mg Capsule) 100 mg PO BID [facility] Stop: 04/04/16 17:59 Last Admin: 03/07/16 17:02 Dose: 100 mg Enoxaparin Sodium (Lovenox Inj 40 Mg/0.4 Ml Disp.Syrin) 40 mg SUBCUT QAM [facility] Stop: 04/05/16 07:59 Last Admin: 03/07/16 09:43 Dose: 40 mg Hydromorphone HCl (Dilaudid Inj/Pf 2 Mg/Ml Ampule) 2 mg IV Q2HP PRN PRN Reason: FOR PAIN Stop: 03/12/16 15:31 Last Admin: 03/08/16 01:00 Dose: 2 mg Sodium Chloride (Nacl 0.9% 1000 Ml Iv Soln) 1,000 mls @ 500 mls/hr IV CONTINUOUS PRN PRN Reason: THIS MED IS NOT "PRN" Stop: 04/06/16 14:27 Last Admin: 03/07/16 18:17 Dose: 1,000 ml Imipenem/Cilastatin Sodium 1, (000 mg/ Sodium Chloride) 250 mls @ 250 mls/hr IV Q6 [facility] Stop: 03/14/16 17:59 Last Admin: 03/08/16 01:22 Dose: Not Given Potassium Chloride/Dextrose/Sod Cl (D5ns 1000 Ml/Kcl 20 Meq Premix Bag) 1,000 mls @ 300 mls/hr IV CONTINUOUS PRN PRN Reason: THIS MED IS NOT "PRN" Stop: 04/06/16 23:27 Last Admin: 03/08/16 00:29 Dose: 1,000 ml Imipenem/Cilastatin Sodium (Primaxin Inj 500 Mg Vial) 1,000 mg IV ASDIR PRN Stop: 03/08/16 10:00 Last Admin: 03/08/16 00:27 Dose: 1,000 mg Ketorolac Tromethamine (Toradol Inj/Pf 30 Mg/1 Ml Sdv) 15 mg IV Q6HP PRN PRN Reason: FOR MODERATE PAIN OR TEMP Stop: 03/10/16 15:32 Last Admin: 03/07/16 23:28 Dose: 15 mg Pantoprazole Sodium (Protonix Iv Inj 40 Mg Vial) 40 mg IV Q12 YAJAIRA Stop: 03/08/16 21:59 Last Admin: 03/07/16 21:05 Dose: 40 mg Polyethylene Glycol (Miralax Powder 17 Gm/Packet) 17 gm PO DAILYP PRN Stop: 04/05/16 10:04 Promethazine HCl (Phenergan Inj 25 Mg/1 Ml Vial) 12.5 mg IV Q4HP PRN PRN Reason: FOR NAUSEA/VOMITING Stop: 04/04/16 15:21 Last Admin: 03/07/16 21:06 Dose: 12.5 mg - Allergies Allergies/Adverse Reactions: No Known Allergies Allergy (Unverified 10/10/15 23:01) Hospital Course Hospital Course: 03/08/2016: During evening checkout rounds, the daytime hospitalist managing the patient stated that clinically she appeared to be a bit worse. Vital signs that evening revealed tachycardia into the 140s, and tachypnea in the 30s. Acceptable O2 saturations and blood pressure. Chart was reviewed. I discussed patient with and consulted our on-call surgeon , who examined the patient and overall felt patient should be transferred to tertiary center for clinically worsening pancreatitis. I agree. CBC also reveals a climbing white count, with increased band count. Recommendation discussed with patient. She agrees. Female floor nurse Cayla present. [id number] also present, with patient's approval. At 11 PM on the , I spoke with transfer center at [facility]. No medical beds, with a waiting list of 15 patients. At 11:05 PM, I spoke with transfer center at [facility]. At 11:55 PM, I discussed the patient by phone with Dr. Cortez, on- call hospitalist at [facility]. Patient was discussed in detail. He has graciously accepted the patient in transfer. Per His recommendation, arterial blood gas and chest x-ray were performed, with results having been reviewed, including discussion with interpreting radiologist for chest x-ray. At 1:10 AM this morning, with transport team having loaded the patient on the stretcher, blood pressure 116/65. Pulse 132 and regular. Respirations are 32. 96% saturation on 2 L oxygen per nasal cannula. She is awake and alert, still having some abdominal pain. Overall, stable for transfer to [facility]. Patient agrees with transport. 65 minutes critical care time spent in evaluation and management of patient, including direct patient examination, multiple discussions with involved physicians, including ophthalmic surgical assistant and accepting physician at [facility], multiple discussions with nursing staff, multiple discussions with patient, and entering of multiple orders into the electronic health record. Physical Exam Vital Signs: Temp Pulse Resp BP Pulse Ox 98.9 F 139 H 20 125/59 L 98 03/07/16 22:52 03/07/16 22:52 03/07/16 22:52 03/07/16 22:52 03/07/16 22:52 Intake & Output 03/07/16 03/08/16 03/09/16 00:59 00:59 00:59 Intake Total 5680 4530 Output Total 1300 2650 Balance 4380 1880 Weight 115.6 kg 115.6 kg Results Laboratory Results: 03/07/16 22:15 03/07/16 22:15 03/07/16 03/07/16 03/07/16 03:51 03:51 07:56 WBC 20.9 H RBC 4.21 Hgb 12.3 Hct 38.1 MCV 90 MCH 29.1 MCHC 32.2 RDW 13.8 Plt Count 209 Seg Neutrophils % Not Reportable Lymphocytes % Not Reportable Monocytes % Not Reportable Eosinophils % Not Reportable Basophils % Not Reportable Absolute Neutrophils Not Reportable Absolute Lymphocytes Not Reportable Absolute Monocytes Not Reportable Absolute Eosinophils Not Reportable Absolute Basophils Not Reportable Carbonic Acid HCO3/H2CO3 Ratio ABG pH ABG pCO2 ABG pO2 ABG HCO3 ABG O2 Saturation ABG Base Excess VBG pH VBG pCO2 VBG HCO3 VBG Base Excess FiO2 Sodium 135.4 L Potassium 3.5 L Chloride 101 Carbon Dioxide 25 Anion Gap 9 BUN 9 Creatinine 0.61 Est GFR ( Amer) > 60 Est GFR (Non-Af Amer) > 60 Glucose 97 Lactic Acid Calcium 8.0 L Phosphorus 3.1 Magnesium 1.5 L Total Bilirubin 0.7 AST 43 H ALT 93 H Alkaline Phosphatase 90 C-Reactive Protein 315.3 H Total Protein 5.5 L Albumin 2.5 L Lipase 620.7 H Urine Color Urine Appearance Urine pH Ur Specific [place] Urine Protein Urine Glucose (UA) Urine Ketones Urine Blood Urine Nitrite Ur Leukocyte Esterase Urine WBC (Auto) Urine RBC (Auto) 03/07/16 03/07/16 03/07/16 14:52 15:25 22:00 WBC RBC Hgb Hct MCV MCH MCHC RDW Plt Count Seg Neutrophils % Lymphocytes % Monocytes % Eosinophils % Basophils % Absolute Neutrophils Absolute Lymphocytes Absolute Monocytes Absolute Eosinophils Absolute Basophils Carbonic Acid Cancelled HCO3/H2CO3 Ratio Cancelled ABG pH Cancelled ABG pCO2 Cancelled ABG pO2 Cancelled ABG HCO3 Cancelled ABG O2 Saturation Cancelled ABG Base Excess Cancelled VBG pH VBG pCO2 VBG HCO3 VBG Base Excess FiO2 Cancelled Sodium Potassium Chloride Carbon Dioxide Anion Gap BUN Creatinine Est GFR ( Amer) Est GFR (Non-Af Amer) Glucose Lactic Acid 0.9 Calcium Phosphorus Magnesium Total Bilirubin AST ALT Alkaline Phosphatase C-Reactive Protein Total Protein Albumin Lipase Urine Color YELLOW Urine Appearance SLIGHTLY-CLOUDY Urine pH 5.0 Ur Specific [place] 1.018 Urine Protein 30 H Urine Glucose (UA) NEGATIVE Urine Ketones 80 H Urine Blood MODERATE H Urine Nitrite NEGATIVE Ur Leukocyte Esterase NEGATIVE Urine WBC (Auto) 2 Urine RBC (Auto) 9 03/07/16 03/07/16 03/07/16 22:15 22:15 22:15 WBC 22.4 H RBC 3.81 Hgb 11.3 L Hct 34.4 L MCV 90 MCH 29.6 MCHC 32.7 RDW 13.9 Plt Count 195 Seg Neutrophils % Not Reportable Lymphocytes % Not Reportable Monocytes % Not Reportable Eosinophils % Not Reportable Basophils % Not Reportable Absolute Neutrophils Not Reportable Absolute Lymphocytes Not Reportable Absolute Monocytes Not Reportable Absolute Eosinophils Not Reportable Absolute Basophils Not Reportable Carbonic Acid HCO3/H2CO3 Ratio ABG pH ABG pCO2 ABG pO2 ABG HCO3 ABG O2 Saturation ABG Base Excess VBG pH 7.40 VBG pCO2 35.3 VBG HCO3 21.3 VBG Base Excess -3.0 FiO2 Sodium 135.2 L Potassium 3.5 L Chloride 103 Carbon Dioxide 21 L Anion Gap 11 BUN 6 L Creatinine 0.53 Est GFR ( Amer) > 60 Est GFR (Non-Af Amer) > 60 Glucose 121 H Lactic Acid Calcium 7.8 L Phosphorus Magnesium 2.2 Total Bilirubin AST ALT Alkaline Phosphatase C-Reactive Protein Total Protein Albumin Lipase Urine Color Urine Appearance Urine pH Ur Specific [place] Urine Protein Urine Glucose (UA) Urine Ketones Urine Blood Urine Nitrite Ur Leukocyte Esterase Urine WBC (Auto) Urine RBC (Auto) 03/08/16 00:05 WBC RBC Hgb Hct MCV MCH MCHC RDW Plt Count Seg Neutrophils % Lymphocytes % Monocytes % Eosinophils % Basophils % Absolute Neutrophils Absolute Lymphocytes Absolute Monocytes Absolute Eosinophils Absolute Basophils Carbonic Acid 1.37 H HCO3/H2CO3 Ratio 17:1 ABG pH 7.34 L ABG pCO2 45.5 H ABG pO2 58.0 L ABG HCO3 24.0 ABG O2 Saturation 88.4 L ABG Base Excess -1.9 VBG pH VBG pCO2 VBG HCO3 VBG Base Excess FiO2 ROOM AIR Sodium Potassium Chloride Carbon Dioxide Anion Gap BUN Creatinine Est GFR ( Amer) Est GFR (Non-Af Amer) Glucose Lactic Acid Calcium Phosphorus Magnesium Total Bilirubin AST ALT Alkaline Phosphatase C-Reactive Protein Total Protein Albumin Lipase Urine Color Urine Appearance Urine pH Ur Specific [place] Urine Protein Urine Glucose (UA) Urine Ketones Urine Blood Urine Nitrite Ur Leukocyte Esterase Urine WBC (Auto) Urine RBC (Auto) Impressions: Abdomen/Pelvis CT 03/05/16 11:47 IMPRESSION: Acute pancreatitis. Correlation with serum chemistries is recommended. Abdomen Ultrasound 03/05/16 11:53 IMPRESSION: No acute abnormality. Abdomen MRI 03/07/16 00:00 IMPRESSION: RE- DEMONSTRATION OF INFLAMMATORY CHANGES INVOLVING PREDOMINANTLY THE PANCREATIC HEAD, BUT ALSO EXTENDING TO THE RIGHT PERINEPHRIC AND PARAHEPATIC SOFT TISSUES. OTHERWISE NORMAL HEPATOBILIARY SYSTEM. NO STONES OR COMMON DUCT ABNORMALITIES. Chest X-Ray 03/08/16 00:00 IMPRESSION: New-worsened opacities of the right lung. Differential diagnosis includes infectious, inflammatory, and neoplastic etiologies. 7-12 week surveillance radiographs recommended.
[2016-03-08 10:56] LABS: EPSTEIN BARR EARLY AG IGG AB <9.0 U/mL (0.0-8.9)
[2016-03-08 14:33] LABS: PATH REVIEW PATHOLOGIST REVIEWED
== END 2016-03-08 01:28 | disposition short-term general hospital (02) | DRG 438 ==
LOC: ER 10:07 → EH 15:22 → UNDOADMIN 15:25 → 3N 17:26
DX: K85.00 Idiopathic acute pancreatitis without necrosis or infection (principal); A41.9 Sepsis, unspecified organism; Z68.41 Body mass index [BMI] 40.0-44.9, adult; K56.0 Paralytic ileus; R00.0 Tachycardia, unspecified; E66.9 Obesity, unspecified; J44.9 Chronic obstructive pulmonary disease, unspecified; G62.9 Polyneuropathy, unspecified; D86.9 Sarcoidosis, unspecified; Z79.899 Other long term (current) drug therapy; Z90.710 Acquired absence of both cervix and uterus; Z87.891 Personal history of nicotine dependence
CPT/HCPCS: 36415; 36600; 71010; 74177; 74181; 76705; 80048; 80053; 80061; 80074; 80307; 81001; 82330; 82803; 83036; 83605; 83690; 83735; 84100; 84443; 85025; 85610; 85730; 86140; 86256; 86663; 86664; 86665; 87040; 96374; 96375; 96376; 99291; J0743; J1170; J1200; J1650; J1885; J2270; J2405; J2550; J2765; J3475; J3480; J3490; J7030; J7050; J7120; S0164

== ENCOUNTER 2016-03-24 12:35 | Emergency (ER) | payer MEDICARE, MEDICAID ==
[2016-03-24] MEDS ORDERED: ONDANSETRON HCL 8 MG TABLET PO ONE (12:46)
--- NOTE | 2016-03-24 12:46 | ER Document Report ---
ED Medical Screen (RME) - General Stated Complaint: ABDOMINAL PAIN Notes: 40 yo female c/o upper abdomina pain, vomiting, not tolerating any po. pt discharged from [facility] on 03/17 for cholecystectomy, pancreatitis, pneumonia. pt is also constipated. no fever TRAVEL OUTSIDE OF THE [place] IN LAST 30 DAYS: No - Related Data Allergies/Adverse Reactions: No Known Allergies Allergy (Unverified 10/10/15 23:01) Past Medical History - Social History Family history: Reviewed & Not Pertinent Pulmonary Medical History: Reports: Hx COPD Psychiatric Medical History: Denies: Hx Depression Past Surgical History: Reports: Hx Hysterectomy - Immunizations Immunizations up to date: No Physical Exam - Vital signs Vitals: Temp Pulse Resp BP Pulse Ox 97.4 F 128 H 18 120/91 H 97 03/24/16 12:40 03/24/16 12:40 03/24/16 12:40 03/24/16 12:40 03/24/16 12:40 Course - Vital Signs Vital signs: Temp Pulse Resp BP Pulse Ox 97.4 F 128 H 18 120/91 H 97 03/24/16 12:40 03/24/16 12:40 03/24/16 12:40 03/24/16 12:40 03/24/16 12:40
[2016-03-24 13:21] LABS: ABSOLUTE MONOCYTES (AUTO) 0.7 10^3/uL (0.1-1.4); ABSOLUTE NEUT (AUTO) 3.4 10^3/uL (1.7-8.2); BASOPHILS % (AUTO) 0.6 % (0-2); EOSINOPHILS % (AUTO) 0.4 % (0-6); HEMOGLOBIN 12.3 g/dL (12.0-15.5); HGB HCT DIFFERENCE 0.9; LYMPHOCYTES % (AUTO) 42.1 % (13-45); MEAN CORPUSCULAR HEMOGLOBIN 30.1 pg (27.0-33.4); MEAN CORPUSCULAR HGB CONC 34.3 g/dL (32.0-36.0); MEAN CORPUSCULAR VOLUME 88 fl (80-97); MONOCYTES % (AUTO) 9.7 % (3-13); SEGMENTED NEUTROPHILS % (AUTO) 47.2 % (42-78); WHITE BLOOD COUNT 7.2 10^3/uL (4.0-10.5)
[2016-03-24 13:29] LABS: AMORPHOUS SEDIMENT,URINE TRACE /HPF; APPEARANCE,URINE CLOUDY; BILIRUBIN,URINE NEGATIVE (NEGATIVE); GLUCOSE, URINE NEGATIVE (NEGATIVE); KETONES,URINE NEGATIVE (NEGATIVE); LEUKOCYTE ESTERASE,URINE NEGATIVE (NEGATIVE); NITRITE,URINE NEGATIVE (NEGATIVE); PROTEIN,URINE 30 mg/dL (NEGATIVE); URINE SPECIFIC GRAVITY 1.018; UROBILINOGEN,URINE NEGATIVE mg/dL (<2.0)
[2016-03-24 13:33] LABS: ALANINE AMINOTRANSFERASE 38 U/L (9-52); ALBUMIN 4.1 g/dL (3.5-5.0); ALKALINE PHOSPHATASE 95 U/L (38-126); ANION GAP 16 (5-19); ASPARTATE AMINO TRANSFERASE 36 U/L (14-36); BILIRUBIN,TOTAL 0.4 mg/dL (0.2-1.3); BLOOD UREA NITROGEN 9 mg/dL (7-20); CALCIUM 9.8 mg/dL (8.4-10.2); CARBON DIOXIDE 23 mmol/L (22-30); CHLORIDE 103 mmol/L (98-107); CREATININE RESULT 0.75 mg/dL (0.52-1.25); GLUCOSE 134 mg/dL (75-110); LIPASE 65.8 U/L (23-300); POTASSIUM 4.5 mmol/L (3.6-5.0); SODIUM 141.5 mmol/L (137-145); TOTAL PROTEIN 8.5 g/dL (6.3-8.2)
[2016-03-24] MEDS ORDERED: MORPHINE SULFATE 10 MG/ML INJ IV ONE ×2 (15:01→19:55)
[2016-03-24] MEDS ORDERED: NORMAL SALINE 1000 ML 1,000 ML IV ONE (15:01)
--- NOTE | 2016-03-24 17:25 | ER Document Report ---
ED General - General Chief Complaint: Abdominal Pain Stated Complaint: ABDOMINAL PAIN Mode of Arrival: Ambulatory Information source: Patient Notes: Patient is a 40-year-old -[place] female who presents with upper abdominal pain and vomiting for the past week that has worsened since yesterday. She states she is not tolerating anything by mouth. She is postop day 9 status post cholecystectomy done at [facility] and discharged on 03/17. She states the pain has persisted since then and she has not had a bowel movement since the operation. She has been taking oxycodone for pain which is no longer helping. She has tried a laxative and drinking coffee for the constipation which has not helped. She denies any fever, chills, headache, chest pain, shortness of breath or urinary symptoms. She has not followed up with her surgeon because she lives out of town and was waiting until she returned home to schedule a follow-up. TRAVEL OUTSIDE OF THE [place] IN LAST 30 DAYS: No - Related Data Allergies/Adverse Reactions: Sulfa (Sulfonamide Antibiotics) Allergy (Verified 03/24/16 12:43) Past Medical History - Social History Smoking Status: Never Smoker Chew tobacco use (# tins/day): No Frequency of alcohol use: None Drug Abuse: None Family History: Reviewed & Not Pertinent Patient has suicidal ideation: No Patient has homicidal ideation: No Pulmonary Medical History: Reports: Hx COPD Renal/ Medical History: Denies: Hx Peritoneal Dialysis Psychiatric Medical History: Denies: Hx Depression Past Surgical History: Reports: Hx Hysterectomy - Immunizations Immunizations up to date: No Review of Systems - Review of Systems Constitutional: See HPI EENT: No symptoms reported Cardiovascular: No symptoms reported Respiratory: No symptoms reported Gastrointestinal: See HPI Genitourinary: No symptoms reported Female Genitourinary: No symptoms reported Musculoskeletal: No symptoms reported Skin: No symptoms reported Hematologic/Lymphatic: No symptoms reported Neurological/Psychological: No symptoms reported Physical Exam - Vital signs Vitals: Temp Pulse Resp BP Pulse Ox 97.4 F 128 H 18 120/91 H 97 03/24/16 12:40 03/24/16 12:40 03/24/16 12:40 03/24/16 12:40 03/24/16 12:40 Interpretation: Hypertensive, Tachycardic - Notes Notes: PHYSICAL EXAM: CONSTITUTIONAL: Alert and oriented, well-appearing and in no acute distress. Appears uncomfortable but non-toxic. HENT: Normocephalic, atraumatic. Dry mucous membranes. EYES: Pupils equal round and reactive to light, EOM intact. Sclera anicteric, conjunctiva are normal. No entrapment. NECK: supple without lymphadenopathy. ROM intact. No meningeal signs. HEART: Tachycardic rate and regular rhythm without murmurs. LUNGS: CTAB and equal. No wheezes, rales or rhonchi. GI: Normactive bowel sounds. Tender to palpation in epigastric and RUQ/LUQ with voluntary guarding and mild distention, lower abdomen is soft with mild tenderness. No rebound. No organomegaly. no CVAT. Laproscopic incision sites at RUQ and LUQ and umbilicus. Tender to palpation just distal to umbilical incision site without swelling, drainage, erythema or warmth. EXTREMITIES: Normal range of motion, no pitting edema. No cyanosis. Cap Refill < 3 seconds. NEURO: Cranial nerves grossly intact. Normal sensory/motor exams. PSYCH: Normal mood, normal affect. SKIN: Warm and dry. Normal turgor. No rashes or lesions noted. Course - Re-evaluation Re-evalutation: 03/24/16 17:25 I have consulted with the supervisory physician per [facility] guidelines. Patient seen and examined. Abdomen tender to palpation in epigastric region with voluntary guarding but no rebound. Mild distention noted. Reviewed labs - unremarkable CBC/chemistry and UA. Will give IV fluid bolus, IV morphine and obtain KUB. 03/24/16 15:00 Reviewed results of KUB - large amount of stool in transverse and descending colon. Concern for seroma/hematoma at site of umbilical incision - will order CT of A/P w/ oral and IV contrast to further evaluate. 03/24/2016 19:50 patient complaining of return of pain, will order 4 mg of morphine IV. Awaiting results of A/P CT scan. 03/24/2016 20:[address] w/ Cont Abd/Pelvis - noted fluid collection surrounding pancreas consistent with developing pseudocyst, largest area 9.7 x 3.9 cm with mild peripancreatic inflammation. Inguinal hernia containing omental fat with mild inflammation noted as well as large amount of stool in colon. 03/24/16 20:06 Consulted and discussed case with Dr. Pires surgeon on-call who recommended transfer to [facility] where previous surgery was done for stent placement/ drainage of pseudocyst. 03/24/16 21:02 Consulted and discussed case with Dr. Dusty Kilgore, surgeon on-call at [facility] who accepted the patient in transfer. Awaiting bed assignment at this time. Ordered continuous IV fluids. Patient voices no additional needs at this time. Patient NPO at this time and is stable for transfer. - Vital Signs Vital signs: Temp Pulse Resp BP Pulse Ox 97.4 F 112 H 20 136/73 H 99 03/24/16 20:01 03/24/16 20:01 03/24/16 20:01 03/24/16 20:01 03/24/16 20:01 03/24/16 21:02 - Laboratory Result Diagrams: 03/24/16 12:50 03/24/16 12:50 Laboratory results interpreted by me: 03/24/16 03/24/16 03/24/16 12:50 12:50 12:55 RDW 15.0 H Plt Count 533 H Glucose 134 H Total Protein 8.5 H Urine Protein 30 H - Diagnostic Test Radiology reviewed: Image reviewed, Reports reviewed Radiology results interpreted by me: 03/24/16 20:07 Abd/pelvis CT w/ oral/IV cont - fluid collection surrounding pancreas consistent with developing pseudocyst, largest area at 9.7x3.9 cm. Mild peripancreatic inflammation. Moderate stool noted in colon. Inguinal hernia containing omental fat with mild inflammation changes. Discharge - Discharge Clinical Impression: Pseudocyst of pancreas Abdominal pain Qualifiers: Abdominal location: epigastric Qualified Code(s): R10.13 - Epigastric pain Condition: Stable Disposition: [facility] Admitting Provider: Dr. Dusty Kilgore
[2016-03-24] MEDS ORDERED: NORMAL SALINE 1000 ML 1,000 ML IV STA (21:00)
[2016-03-24 23:08] VITALS: BP 115/74
== END 2016-03-24 23:08 | disposition short-term general hospital (02) ==
LOC: ER 12:35
DX: K86.3 Pseudocyst of pancreas (principal); R10.9 Unspecified abdominal pain; R11.10 Vomiting, unspecified; Z79.899 Other long term (current) drug therapy
CPT/HCPCS: 96376; 99285; 96361; 96374; 36415; 83690; 85025; 80053; 81001; 74000; 74177; J2270; A9270; J7030; S0119

== ENCOUNTER 2016-12-02 16:59 | Emergency (ER) | payer MEDICARE, MEDICAID ==
[2016-12-02] MEDS ORDERED: DIPHENHYDRAMINE HCL 50 MG/ML VIAL IV ONE (17:31)
[2016-12-02] MEDS ORDERED: NORMAL SALINE 1000 ML 1,000 ML IV ONE (17:31)
[2016-12-02] MEDS ORDERED: DIAZEPAM INJ 10 MG/2 ML DISP.SYRIN IV ONE (17:31)
[2016-12-02] MEDS ORDERED: KETOROLAC TROMETHAMINE INJ/PF 30 MG/1 ML SDV IV ONE (17:31)
[2016-12-02] MEDS ORDERED: METOCLOPRAMIDE HCL INJ/PF 10 MG/2 ML SDV IV ONE (17:31)
[2016-12-02] MEDS ORDERED: DEXAMETHASONE SOD PHOS INJ 10 MG/1 ML VIAL IV ONE (17:31)
--- NOTE | 2016-12-02 17:36 | ER Document Report ---
ED Headache - General Chief Complaint: Headache Stated Complaint: NECK PAIN, HEADACHE,VOMITING Mode of Arrival: Ambulatory Information source: Patient TRAVEL OUTSIDE OF THE [place] IN LAST 30 DAYS: No - HPI Patient complains to provider of: Headache Patient reports: Occasional migraines Onset: Yesterday Onset was: Cannot pinpoint, Gradual. denies: Abrupt, Thunderclap Timing: Still present Quality of pain: Pressure Severity: Moderate Context: denies: CO exposure, Head injury, Meningitis exposure Associated symptoms: Nausea/vomiting, Neck pain, Photophobia. denies: Chills, Confusion, Dizzy, Double/blurred vision, Fainting, Fever, Lightheaded, Memory loss, Motion sickness, Motor/sensory loss to arm, Motor/sensory loss to leg, Speech problems, Sweaty, Tingling/numb sensation, Trouble walking Exacerbated by: Light, Movement Notes: Patient arrives with complaints of right neck pain, headache, nausea vomiting. The patient has a history of muscle spasms in the right trapezius muscle which then leads to migraine type headaches which is then associated with nausea vomiting. This sequence started yesterday. She states that this feels like prior events that she has had in the past. She states that due to her nausea vomiting she has not been able to keep her medications down that she usually takes and her symptoms have worsened. She denies any head injuries. She denies blood thinners. She denies fevers. She denies abdominal pain. She denies any dysuria or hematuria. She denies any blurred or lost vision. She states that this feels exactly like prior episodes she has had in the past. This was not a sudden onset thunderclap headache. She denies any posterior neck stiffness, she states that she has muscle spasm in the right trapezius and right lateral neck. Is here visiting her son who is in the [place]. She was brought in for evaluation and management of her symptoms. - Related Data Allergies/Adverse Reactions: Sulfa (Sulfonamide Antibiotics) Allergy (Verified 12/02/16 17:10) Past Medical History - Social History Smoking Status: Current Every Day Smoker Chew tobacco use (# tins/day): No Frequency of alcohol use: None Drug Abuse: None Family History: Reviewed & Not Pertinent Patient has suicidal ideation: No Pulmonary Medical History: Reports: Hx COPD Renal/ Medical History: Denies: Hx Peritoneal Dialysis Psychiatric Medical History: Denies: Hx Depression Past Surgical History: Reports: Hx Hysterectomy - Immunizations Immunizations up to date: No Review of Systems - Review of Systems -: Yes All other systems reviewed and negative Physical Exam - Vital signs Vitals: Temp Pulse Resp BP Pulse Ox 98.0 F 83 21 H 124/82 97 12/02/16 17:11 12/02/16 17:11 12/02/16 17:11 12/02/16 17:11 12/02/16 17:11 - Notes Notes: GENERAL: alert, cooperative, nontoxic, no distress. HEAD: normocephalic, atraumatic EYES: conjunctiva pink without discharge, no external redness or swelling. Pupils are equal, round, reactive to light. EARS: no external swelling, no external redness NOSE: atraumatic, no external swelling MOUTH/THROAT: mucous membranes moist and pink, posterior pharynx without erythema, swelling, exudate. No trismus or drooling. NECK: soft, supple, full range of motion, no meningismus. Slight muscle spasm noted in the right trapezius muscle with tenderness to palpation of this area. CHEST: no distress, lungs clear and equal throughout. No wheezing, rales, rhonchi. CARDIAC: regular rate and rhythm, no murmur, normal capillary refill, normal pulses. No peripheral edema noted. BACK: full range of motion, no CVA tenderness. EXTREMITIES: full range of motion of all extremities. No redness, no swelling. NEURO: alert and oriented x 3, cranial nerves II through XII are grossly intact. Upper and lower extremities are equal throughout. Normal sensation. No focal deficits, full range of motion of all extremities. normal finger to nose. NIH stroke score of 0. PYSCH: appropriate mood, affect. Patient is cooperative. SKIN: pink, warm, dry, no rash. Course - Re-evaluation Re-evalutation: 12/02/16 19:02 Patient is nontoxic appearing with stable vitals. The patient has a history of muscle spasms in the neck as well as migraine headaches. He is having typical exacerbation of her muscle spasm which is then caused a migraine type headache. She has had some nausea vomiting with it as well. She denies any abdominal pain. She denies any sudden onset or thunderclap headache. She is not on blood thinners. She has normal neuro exam. No fever. No sign of meningitis. No abdominal tenderness on exam. States that this is very typical for her. The patient had an IV placed she was given IV fluids Reglan, Benadryl, Toradol, Valium, Decadron, IV fluids. States that she is feeling significantly better and would be is ready to go home. Patient will be discharged home with instructions to follow-up as needed for worsening headache, fever, neck stiffness, any further concerns. The patient is noted to have elevated blood pressure during today's emergency department visit. The patient was informed of this finding. The patient was instructed that this may be related to pre-hypertension and requires further evaluation with a primary care provider. The patient has no hypertensive symptoms at this time. The patient's emergency department workup and current diagnosis were explained to the patient and or family. Follow-up instructions were provided. Medications if prescribed were discussed. Instructions for when to return to the emergency department including specific worrisome symptoms were discussed with the patient and/or family. - Vital Signs Vital signs: Temp Pulse Resp BP Pulse Ox 98.0 F 83 21 H 124/82 97 12/02/16 17:13 12/02/16 17:13 12/02/16 17:11 12/02/16 17:13 12/02/16 17:13 Discharge - Discharge Clinical Impression: Neck muscle spasm Headache Qualifiers: Headache type: unspecified Headache chronicity pattern: acute headache Intractability: not intractable Qualified Code(s): R51 - Headache Condition: Stable Disposition: HOME, SELF-CARE Instructions: Headache ([facility]) Additional Instructions: Drink lots of fluids. Follow-up as needed for worsening headache, fever, significant neck stiffness, rash, or any further concerns. Your blood pressure was elevated during today's visit. Have this rechecked with your doctor. Forms: Elevated Blood Pressure Referrals: [facility] [Provider Group] - Follow up as needed
[2016-12-02 19:21] VITALS: BP 109/56
== END 2016-12-02 19:21 | disposition home or self-care (01) ==
LOC: ER 16:59
DX: G43.909 Migraine, unspecified, not intractable, without status migrainosus (principal); M62.830 Muscle spasm of back; R11.2 Nausea with vomiting, unspecified; H53.149 Visual discomfort, unspecified; J44.9 Chronic obstructive pulmonary disease, unspecified; R03.0 Elevated blood-pressure reading, without diagnosis of hypertension; F17.200 Nicotine dependence, unspecified, uncomplicated; Z88.2 Allergy status to sulfonamides
CPT/HCPCS: 99283; 96361; 96374; 96375; J3360; J1200; J1885; J2765; J7030; J1100

== ENCOUNTER 2016-12-03 15:40 | Emergency (ER) | payer MEDICARE, MEDICAID ==
[2016-12-03] MEDS ORDERED: ONDANSETRON 4 MG TAB.RAPDIS PO ONE (16:10)
[2016-12-03] MEDS ORDERED: KETOROLAC TROMETHAMINE 60 MG/2 ML SDV IM ONE (16:10)
--- NOTE | 2016-12-03 16:17 | ER Document Report ---
HPI - HPI Patient complains to provider of: Possible medication reaction Onset: Other Onset/Duration: Gradual Quality of pain: Burning Severity: Severe Pain Level: 5 Context: Patient states her Prozac was changed to Lamictal on Tuesday. She started with itching and vomiting on Tuesday. Called her primary care physician in [place] and was told to come stop the Lamictal and take [id number] Benadryl. Since she is still symptomatic, her doctor told her to go the ER to be checked out. Patient states she has vomited twice today, and itching of the skin is relieved with [id number] Benadryl. Also complains of sore throat which she described as burning, from vomiting. Denies fever or diarrhea Associated Symptoms: Nausea, Vomiting. denies: Hurts to breath, Shortness of breath Exacerbated by: Denies Relieved by: Denies Similar symptoms previously: Yes Recently seen / treated by doctor: No - ROS ROS below otherwise negative: Yes Systems Reviewed and Negative: Yes All other systems reviewed and negative - CONSTITUTIONAL Constitutional: REPORTS: Fever - EENT EENT: REPORTS: Sore Throat. DENIES: Congestion - NEURO Neurology: DENIES: Headache - CARDIOVASCULAR Cardiovascular: DENIES: Chest pain - RESPIRATORY Respiratory: DENIES: Trouble Breathing - GASTROINTESTINAL Gastrointestinal: REPORTS: Abdominal Pain, Nausea, Patient vomiting. DENIES: Diarrhea - URINARY Urinary: DENIES: Dysuria - REPRODUCTIVE Reproductive: DENIES: : - MUSCULOSKELETAL Musculoskeletal: DENIES: Extremity pain - DERM Skin Color: Normal Past Medical History - General Information source: Patient - Social History Smoking Status: Current Some Day Smoker Cigarette use (# per day): Yes Frequency of alcohol use: None Drug Abuse: None Lives with: Family Family History: Reviewed & Not Pertinent Patient has suicidal ideation: No Patient has homicidal ideation: No Pulmonary Medical History: Reports: Hx COPD, Hx Sleep Apnea, Other - sarcoidosis GI Medical History: Reports: Hx Pancreatitis Past Surgical History: Reports: Hx Cholecystectomy, Hx Hysterectomy - Immunizations Immunizations up to date: No Vertical Provider Document - CONSTITUTIONAL Agree With Documented VS: Yes Exam Limitations: No Limitations General Appearance: WD/WN, No Apparent Distress - INFECTION CONTROL TRAVEL OUTSIDE OF THE [place] IN LAST 30 DAYS: No - HEENT HEENT: Atraumatic, Normocephalic, Pharyngeal Erythema Notes: TMs normal bilaterally, neck is supple without adenopathy. - NECK Neck: Normal Inspection - RESPIRATORY Respiratory: Breath Sounds Normal, No Respiratory Distress O2 Sat by Pulse Oximetry: 100 - CARDIOVASCULAR Cardiovascular: Regular Rate, Regular Rhythm, Tachycardia - GI/ABDOMEN Gastrointestinal: Abdomen Soft, Abdomen Tender - Epigastric, Normal Bowel Sounds - MUSCULOSKELETAL/EXTREMETIES Musculoskeletal/Extremeties: MAEW, Tender - Across right shoulder. She takes Skelaxin for this - NEURO Level of Consciousness: Awake, Alert, Appropriate - DERM Integumentary: Warm, Dry, No Rash Course - Vital Signs Vital signs: Temp Pulse Resp BP Pulse Ox 98.3 F 106 H 16 130/87 H 100 12/03/16 15:45 12/03/16 15:45 12/03/16 15:45 12/03/16 15:45 12/03/16 15:45 Discharge - Discharge Clinical Impression: Strep pharyngitis, Itching Vomiting Qualifiers: Vomiting type: unspecified Vomiting Intractability: unspecified Nausea presence : with nausea Qualified Code(s): R11.2 - Nausea with vomiting, unspecified Condition: Good Disposition: HOME, SELF-CARE Instructions: Antinausea Medication ([facility]), Strep Throat ([facility]), Vomiting ([facility]) Additional Instructions: You have been given a one-time injection to cover strep so no further antibiotics needed at this time Zofran as needed for nausea Prednisone to help with itching [id number] Benadryl as needed for itching Follow-up with your doctor concerning possible allergic reaction to Lamictal, you have previously been instructed by PCP not to take Push fluids Return as needed Prescriptions: Diphenhydramine HCl 25 mg PO PRN PRN #120 liquid PRN Reason: Hydrocodone/Acetaminophen [Lortab 7.5-325 mg/15 ml Oral Soln] 10 ml PO Q6H PRN # 90 ml PRN Reason: Prednisone [Deltasone 10 mg Tablet] 10 mg PO ASDIR PRN #21 tablet PRN Reason:
[2016-12-03 16:39] LABS: APPEARANCE,URINE SLIGHTLY-CLOUDY; BILIRUBIN,URINE NEGATIVE (NEGATIVE); GLUCOSE, URINE NEGATIVE (NEGATIVE); KETONES,URINE NEGATIVE (NEGATIVE); LEUKOCYTE ESTERASE,URINE NEGATIVE (NEGATIVE); NITRITE,URINE NEGATIVE (NEGATIVE); PROTEIN,URINE NEGATIVE (NEGATIVE); URINE SPECIFIC GRAVITY 1.021; UROBILINOGEN,URINE NEGATIVE mg/dL (<2.0)
[2016-12-03] MEDS ORDERED: PENICILLIN G BENZATHINE 1.2 MILLION UNIT/2 ML DISP.SYRIN IM ONE (16:52)
[2016-12-03 17:30] VITALS: BP 112/90
== END 2016-12-03 17:30 | disposition home or self-care (01) ==
LOC: ER 15:40
DX: J02.0 Streptococcal pharyngitis (principal); L29.9 Pruritus, unspecified; R11.2 Nausea with vomiting, unspecified; R10.9 Unspecified abdominal pain; F17.210 Nicotine dependence, cigarettes, uncomplicated; J44.9 Chronic obstructive pulmonary disease, unspecified; Z90.49 Acquired absence of other specified parts of digestive tract; Z90.710 Acquired absence of both cervix and uterus
CPT/HCPCS: 99283; 96372; 87880; 81001; J1885; A9270; J0561; S0119

== ENCOUNTER 2017-01-02 17:29 | Emergency (ER) | payer MEDICARE, MEDICAID ==
--- NOTE | 2017-01-02 17:57 | ER Document Report ---
ED Medical Screen (RME) - General Chief Complaint: Nausea/Vomiting Stated Complaint: NECK PAIN Time Seen by Provider: 01/02/17 17:50 Notes: This 41-year-old female patient comes emergency room complaining of severe spasms in her right neck trapezius muscle. She was seen here 1 month ago for the same thing. This is a common problem, she states she is supposed to [facility] an [facility] [place] [facility] I have greeted and performed a rapid initial assessment of this patient. A comprehensive ED assessment and evaluation of the patient, analysis of test results and completion of the medical decision making process will be conducted by additional ED providers. TRAVEL OUTSIDE OF THE [place] IN LAST 30 DAYS: No - Related Data Allergies/Adverse Reactions: lamotrigine Allergy (Verified 01/02/17 17:31) Sulfa (Sulfonamide Antibiotics) Allergy (Verified 01/02/17 17:31) Past Medical History - Social History Family history: Reviewed & Not Pertinent Pulmonary Medical History: Reports: Hx COPD, Hx Sleep Apnea Renal/ Medical History: Denies: Hx Peritoneal Dialysis GI Medical History: Reports: Hx Pancreatitis Psychiatric Medical History: Denies: Hx Depression Past Surgical History: Reports: Hx Cholecystectomy, Hx Hysterectomy - Immunizations Immunizations up to date: No History of Influenza Vaccine for 11/2016 - 04/2017 Season: Unknown Physical Exam - Vital signs Vitals: Temp Pulse Resp BP Pulse Ox 97.5 F 93 14 129/80 H 98 01/02/17 17:31 01/02/17 17:31 01/02/17 17:31 01/02/17 17:31 01/02/17 17:31 Course - Vital Signs Vital signs: Temp Pulse Resp BP Pulse Ox 97.5 F 93 14 129/80 H 98 01/02/17 17:31 01/02/17 17:31 01/02/17 17:31 01/02/17 17:31 01/02/17 17:31
--- NOTE | 2017-01-02 18:31 | ER Document Report ---
HPI - HPI Pain Level: Denies Notes: Patient is a 41-year-old female with a history of chronic back pain, neck spasms , and migraines who presents the ED complaining of a right-sided neck spasm that began earlier today. Patient states that she has a snack spasm every once in a while and was evaluated here about a month ago for the same thing. Patient states that when her neck starts to spasm, she develops 1 of her migraines resulting in nausea and vomiting. Patient states that she vomited 3 times with the last one being about 6 hours ago. Patient states that she can still eat and drink now without throwing anything up, but does have associated light sensitivity. Patient denies any recent illness. Patient states that she does have an appointment with a specialist for her neck next month. She still urinating normally and having normal bowel movements. She denies any smoking or IV drug use. Denies any fever, head injury, changes in vision/speech/ mentation/hearing, URI, sore throat, chest pain, palpitations, syncope, cough, shortness of breath, wheeze, dyspnea, abdominal pain, diarrhea, urinary retention, dysuria, hematuria, loss of control of bowel or bladder, numbness/ tingling, saddle anesthesia, muscle paralysis/weakness, or rash. H/o total hysterectomy per patient. - ROS Notes: REVIEW OF SYSTEMS: CONSTITUTIONAL : Denies fever, chills, or sweats. Denies recent illness. EENT: Denies ear, throat, or mouth pain or symptoms. Denies nasal or sinus congestion or discharge. Denies throat, tongue, or mouth swelling or difficulty swallowing. see hpi. CARDIOVASCULAR: Denies chest pain. Denies palpitations or racing or irregular heart beat. Denies ankle edema. RESPIRATORY: Denies cough, cold, or chest congestion. Denies shortness of breath, difficulty breathing, or wheezing. GASTROINTESTINAL: Denies abdominal pain or distention. see hpi. Denies blood in vomitus, stools, or per rectum. Denies black, tarry stools. Denies constipation. GENITOURINARY: Denies difficulty urinating, painful urination, burning, frequency, blood in urine, or discharge. MUSCULOSKELETAL: Denies back or neck pain or stiffness. Denies joint pain or swelling. SKIN: Denies rash, lesions or sores. NEUROLOGICAL: see hpi. Denies confusion or altered mental status. Denies passing out or loss of consciousness. Denies dizziness or lightheadedness. Denies weakness or paralysis or loss of use of either side. Denies problems with gait or speech. Denies sensory loss, numbness, or tingling. Denies seizures. PSYCHIATRIC: Denies anxiety or stress. Denies depression, suicidal ideation, or homicidal ideation. ALL OTHER SYSTEMS REVIEWED AND NEGATIVE. Dictation was performed using [employer] voice recognition software - CARDIOVASCULAR Cardiovascular: DENIES: Chest pain - REPRODUCTIVE Reproductive: DENIES: : - DERM Skin Color: Normal Past Medical History - Social History Smoking Status: Never Smoker Family History: Reviewed & Not Pertinent Patient has suicidal ideation: No Patient has homicidal ideation: No Pulmonary Medical History: Reports: Hx COPD, Hx Sleep Apnea Renal/ Medical History: Denies: Hx Peritoneal Dialysis GI Medical History: Reports: Hx Pancreatitis Psychiatric Medical History: Denies: Hx Depression Past Surgical History: Reports: Hx Cholecystectomy, Hx Hysterectomy - Immunizations Immunizations up to date: No Vertical Provider Document - CONSTITUTIONAL Agree With Documented VS: Yes Notes: PHYSICAL EXAMINATION: GENERAL: Well-appearing, well-nourished and in no acute distress. A&Ox4 HEAD: Atraumatic, normocephalic. Non-tender. EYES: Pupils equal round and reactive to light, extraocular movements intact, sclera anicteric, conjunctiva are normal. No raccoon eyes/entrapment ENT: EAC clear b/l. TM's intact b/l without erythema, fluid, or perforation. Nares patent and without discharge. oropharynx clear without exudates. No tonsilar hypertrophy or erythema. Moist mucous membranes. No sinus tenderness. No hemotympanum/CSF discharge. NECK: Normal range of motion, supple without lymphadenopathy. No rigidity. No midline tenderness. Spurling negative. + mild tenderness to the right trapezius mm with mild spasming noted. Brudzinski/kernig negative. No Meningismus. LUNGS: Breath sounds clear to auscultation bilaterally and equal. No wheezes rales or rhonchi. HEART: Regular rate and rhythm without murmurs, rubs, gallops. ABDOMEN: Soft, nontender, nondistended abdomen. No guarding, no rebound. No masses appreciated. Normal bowel sounds present. No CVA tenderness bilaterally. Musculoskeletal: Ext b/l: FROM to passive/active. Strength 5+/5. No deficits noted. No bony tenderness of extremities. Back: FROM to passive/active. Strength 5+/5. No vertebral point tenderness, stepoffs, or deformities. No other bony tenderness or ecchymosis. SLR negative b/l. Extremities: No cyanosis, clubbing, or edema b/l. Peripheral pulses 2+. Capillary refill less than 2 seconds. NEUROLOGICAL: MMSE intact. Cranial nerves grossly intact. Normal speech, normal gait. Normal sensory, motor exams. Reflexes 2+ b/l. BRANDT's negative. Pronator drift negative. Heel/negrete, finger/nose wnl. Walking on heels/toes and heel to toe wnl. PSYCH: Normal mood, normal affect. SKIN: Warm, Dry, normal turgor, no rashes or lesions noted. - INFECTION CONTROL TRAVEL OUTSIDE OF THE [place] IN LAST 30 DAYS: No - RESPIRATORY O2 Sat by Pulse Oximetry: 98 Course - Re-evaluation Re-evalutation: 01/02/17 18:43 Patient is an afebrile, well-hydrated, 41-year-old female who presents the ED with a migraine headache and trapezius muscle spasm on the right side. Pt has a strong history of these chronic issues with the same symptoms presenting the same way w/o any acute changes. Vitals are stable. PE is otherwise unremarkable for any focal neurological deficits. No imaging warranted at this time based on H&P. Patient is tolerating p.o. currently. IV started today and Benadryl, Toradol, Compazine was given with 1 L normal saline. Valium was also given 5 mg IV for the muscle spasming. Patient does have a ride home. We will reassess the patient in about 45-1hr. Low suspicion for any acute glaucoma, temporal arteritis, meningitis, intracranial hemorrhage, ischemic stroke, sepsis , severe dehydration, or fracture at this time. Patient is aware that his condition can change from initial presentation and that she needs to monitor symptoms closely for any acute changes. 01/02/17 19:45 Patient is doing well without any new concerns or complaints. Patient's symptoms have improved, and she would like to go home. Patient is tolerating p.o. intake without any difficulties. Patient does have a ride home. I will send her home with a prescription for naproxen and baclofen. Conservative measures for symptoms otherwise as reviewed. Recheck with your PCM this week. Consider consult with orthopedics and physical therapy. Return to the ED with any worsening/concerning symptoms otherwise as reviewed in discharge. Patient is in agreement. - Vital Signs Vital signs: Temp Pulse Resp BP Pulse Ox 97.5 F 93 14 129/80 H 98 01/02/17 17:31 01/02/17 17:31 01/02/17 17:31 01/02/17 17:31 01/02/17 17:31 Discharge - Discharge Clinical Impression: Muscle spasm Headache Qualifiers: Headache type: tension-type Headache chronicity pattern: acute headache Intractability: not intractable Qualified Code(s): G44.209 - Tension-type headache, unspecified, not intractable Condition: Stable Disposition: HOME, SELF-CARE Instructions: Intravenous Compazine for Headaches ([facility]), Use of Diphenhydramine , Headache ([facility]), Intravenous (IV) Fluids ([facility]), Muscle Relaxers ([facility]), Neck Injury (Cervical Strain) ([facility]), Toradol Injection ([facility]) Additional Instructions: Rest, Ice Tylenol/ibuprofen as needed Light stretches daily Strength exercises as able Moist heat and massage may help F/u with your PCP in 3-5 days for a recheck Consider consult(s) with Orthopedics/physical therapy for ongoing/worsening symptoms Return to the ED with any worsening symptoms and/or development of fever, headache, worsening neck stiffness/pain, changes in behavior/mentation/speech/ vision/hearing/balance, chest pain, palpitations, syncope, shortness of breath, trouble breathing, abdominal pain, n/v/d, blood in stool/urine, loss of control of bowel/bladder, urinary retention, muscle weakness/paralysis, saddle anesthesia, numbness/tingling, or other worsening symptoms that are concerning to you. Prescriptions: Baclofen [Baclofen 10 mg Tablet] 5 mg PO BID PRN #10 tablet PRN Reason: Naproxen 500 mg PO BID PRN #30 tablet PRN Reason: Forms: Elevated Blood Pressure Referrals: JOE GARZA MD [ACTIVE STAFF] - Follow up as needed [facility] [Provider Group] - Follow up as needed
[2017-01-02] MEDS ORDERED: NORMAL SALINE 1000 ML 1,000 ML IV ONE (18:36)
[2017-01-02] MEDS ORDERED: DIPHENHYDRAMINE HCL 50 MG/ML VIAL IV ONE (18:37)
[2017-01-02] MEDS ORDERED: PROCHLORPERAZINE EDISYLATE INJ 10 MG/2 ML VIAL IV ONE (18:37)
[2017-01-02] MEDS ORDERED: KETOROLAC TROMETHAMINE INJ/PF 30 MG/1 ML SDV IV ONE (18:37)
[2017-01-02] MEDS ORDERED: DIAZEPAM INJ 10 MG/2 ML DISP.SYRIN IV ONE (18:37)
[2017-01-02 20:07] VITALS: BP 111/74
== END 2017-01-02 20:04 | disposition home or self-care (01) ==
LOC: ER 17:29
DX: G44.209 Tension-type headache, unspecified, not intractable (principal); R25.2 Cramp and spasm; M54.9 Dorsalgia, unspecified; G89.29 Other chronic pain
CPT/HCPCS: 99283; J3360; J1200; J1885; J0780; J7030

== ENCOUNTER 2017-05-03 20:57 | Emergency (ER) | payer MEDICARE, MEDICAID ==
[2017-05-03] MEDS ORDERED: DIPHENHYDRAMINE HCL 50 MG/ML VIAL IM ONE (23:43)
[2017-05-03] MEDS ORDERED: METOCLOPRAMIDE HCL INJ/PF 10 MG/2 ML SDV IM ONE (23:44)
--- NOTE | 2017-05-03 23:47 | ER Document Report ---
ED Headache - General Chief Complaint: Headache Stated Complaint: FEVER Time Seen by Provider: 05/03/17 23:11 Mode of Arrival: Ambulatory Information source: Patient TRAVEL OUTSIDE OF THE [place] IN LAST 30 DAYS: No - HPI Patient complains to provider of: Headache Notes: The patient is here with complaints of headache and sore throat. She states that 4 days ago she developed sinus congestion with sore throat not feel well. She had a temperature of 100 on that day. She has had some nausea since that time and states that she vomited once on Tuesday. She has not been eating as much because of the nausea and decreased appetite. She has had no vomiting since that one episode on Tuesday. She complains of a headache mainly in the frontal area. She does complain of photophobia with it as well as the nausea. She does have a history of migraine headaches, and states this feels like migraine headache she has had in the past. This was not a sudden onset thunderclap type headache and has been gradual on set. She is on no blood thinning medications. She denies any head injury. She denies any unilateral numbness, tingling, weakness. She denies any chest pain or shortness of breath. No abdominal pain. No neck stiffness. No blurred or loss vision. Headache is worse with light, nothing makes it better. She denies any other complaints. - Related Data Allergies/Adverse Reactions: lamotrigine Allergy (Verified 01/02/17 17:31) Sulfa (Sulfonamide Antibiotics) Allergy (Verified 01/02/17 17:31) Past Medical History - Social History Smoking Status: Current Every Day Smoker Family History: Reviewed & Not Pertinent Patient has suicidal ideation: No Patient has homicidal ideation: No Pulmonary Medical History: Reports: Hx COPD, Hx Sleep Apnea Renal/ Medical History: Denies: Hx Peritoneal Dialysis GI Medical History: Reports: Hx Pancreatitis Psychiatric Medical History: Denies: Hx Depression Past Surgical History: Reports: Hx Cholecystectomy, Hx Hysterectomy - Immunizations Immunizations up to date: No Review of Systems - Review of Systems -: Yes All other systems reviewed and negative Physical Exam - Vital signs Vitals: Temp Pulse Resp BP Pulse Ox 98.0 F 98 20 135/82 H 98 05/03/17 21:19 05/03/17 21:19 05/03/17 21:19 05/03/17 21:19 05/03/17 21:19 - Notes Notes: GENERAL: alert, cooperative, nontoxic, no distress. HEAD: normocephalic, atraumatic EYES: conjunctiva pink without discharge, no external redness or swelling. Pupils are equal, round, reactive to light. EARS: no external swelling, no external redness NOSE: atraumatic, no external swelling MOUTH/THROAT: mucous membranes moist and pink, posterior pharynx with erythema, no swelling or exudate. No trismus or drooling. No sign of peritonsillar abscess. Voice is normal. NECK: soft, supple, full range of motion, no meningismus. CHEST: no distress, lungs clear and equal throughout. No wheezing, rales, rhonchi. CARDIAC: regular rate and rhythm, no murmur, normal capillary refill, normal pulses. No peripheral edema noted. BACK: full range of motion, no CVA tenderness. EXTREMITIES: full range of motion of all extremities. No redness, no swelling. NEURO: alert and oriented x 3, cranial nerves II through XII are grossly intact. Upper and lower extremities are equal throughout. Normal sensation. No focal deficits, full range of motion of all extremities. normal finger to nose. PYSCH: appropriate mood, affect. Patient is cooperative. SKIN: pink, warm, dry, no rash. Course - Re-evaluation Re-evalutation: 05/04/17 01:18 Patient is nontoxic appearing with stable vitals. The patient has a history of migraine headaches and has a headache similar to previous migraines at this time. She does report some nasal congestion and sore throat and states that she had a fever 4 days ago that has since resolved. She denies any neck stiffness. She had vomiting 4 days ago but has had no vomiting since. She has no abdominal tenderness on exam. She denies any abdominal pain. She is on no blood thinners. This was not a sudden onset, thunderclap headache. She has no signs of meningitis or subarachnoid hemorrhage. She has a nonfocal neurological exam. She is feeling significantly better after migraine medications. Rapid strep was negative. At this point the patient states she is ready to go home. She will be discharged home with instructions to take Tylenol or Motrin as needed for pain. Drink plenty of fluids. Follow-up if not better in the next 3-5 days, sooner for worsening pain, high fevers, persistent vomiting, neck stiffness, or for any further concerns. The patient is noted to have elevated blood pressure during today's emergency department visit. The patient was informed of this finding. The patient was instructed that this may be related to pre-hypertension and requires further evaluation with a primary care provider. The patient has no hypertensive symptoms at this time. The patient's emergency department workup and current diagnosis were explained to the patient and or family. Follow-up instructions were provided. Medications if prescribed were discussed. Instructions for when to return to the emergency department including specific worrisome symptoms were discussed with the patient and/or family. - Vital Signs Vital signs: Temp Pulse Resp BP Pulse Ox 98.0 F 98 20 135/82 H 98 05/03/17 21:19 05/03/17 21:19 05/03/17 21:19 05/03/17 21:19 05/03/17 21:19 Discharge - Discharge Clinical Impression: Headache Qualifiers: Headache type: unspecified Headache chronicity pattern: acute headache Intractability: not intractable Qualified Code(s): R51 - Headache Pharyngitis Qualifiers: Pharyngitis/tonsillitis etiology: unspecified etiology Qualified Code(s): J02.9 - Acute pharyngitis, unspecified Condition: Stable Disposition: HOME, SELF-CARE Instructions: Headache ([facility]), Sore Throat ([facility]) Additional Instructions: Tylenol and Motrin as needed for pain. Drink plenty of fluids. Follow-up with your doctor if not better in 3-5 days, sooner for worsening pain, high fever, persistent vomiting, neck stiffness, or for any further concerns. Your blood pressure was elevated during today's visit. Have this rechecked with your doctor. Forms: Elevated Blood Pressure, Smoking Cessation Education Referrals: [facility] [Provider Group] - Follow up as needed
[2017-05-04] MEDS: KETOROLAC TROMETHAMINE INJ/PF 30 MG/1 ML SDV IM ONE (00:40)
[2017-05-04 01:28] VITALS: BP 130/78
== END 2017-05-04 01:25 | disposition home or self-care (01) ==
LOC: ER 20:57
DX: R51 Headache (principal); J02.9 Acute pharyngitis, unspecified; R11.0 Nausea; R09.81 Nasal congestion; R63.0 Anorexia; H53.149 Visual discomfort, unspecified; R03.0 Elevated blood-pressure reading, without diagnosis of hypertension; F17.200 Nicotine dependence, unspecified, uncomplicated; J44.9 Chronic obstructive pulmonary disease, unspecified; Z88.2 Allergy status to sulfonamides; Z88.8 Allergy status to other drugs, medicaments and biological substances
CPT/HCPCS: 99284; 96372; 87070; 87880; J1200; J1885; J2765